=== PATIENT | male | born 1990 | race Caucasian/White ===

== ENCOUNTER 2020-04-02 18:25 | Inpatient (IN) | payer MEDICAID, OTHER ==
[~2020-04-02] VITALS: Ht 182.9 cm; Wt 54.5 kg
[~2020-04-02 18:25] MED LIST: AMOX-580 PO; CARV-49 PO; FOLI0.4T2 PO; LACT10SO32 PO; LORA-269 PO; MULT-1085 PO; PANT40TA4 PO; THIA50TA10 PO
[2020-04-02] MEDS ORDERED: pantoprazole 40 MG vial IV ONE (19:05)
[2020-04-02] MEDS ORDERED: pantoprazole 40MG/NS 100ML BAG 100 ML IV STA (19:05)
[2020-04-02] MEDS ORDERED: morphine 4 MG/ML inj SYRINge IV ONE (19:05)
[2020-04-02] MEDS ORDERED: normal saline 1000ML IV soln IVB ONE ×2 (19:05→19:45)
[2020-04-02 19:07] LABS: BASOPHILS # (AUTO) 0.1 X10'3 (0-0.2); BASOPHILS % (AUTO) 1.1 % (0-1); EOSINOPHILS % (AUTO) 0.3 % (0-6); HEMATOCRIT 30.7 % (42.0-52.0); HEMOGLOBIN 10.4 g/dl (14.0-17.9); LYMPHOCYTES # (AUTO) 1.4 X10'3 (1.1-4.8); LYMPHOCYTES % (AUTO) 18.8 % (21-51); MEAN CORPUSCULAR HEMOGLOBIN 32.4 PG (27.0-31.0); MEAN CORPUSCULAR HGB CONC 33.8 g/dL (33.0-36.5); MEAN CORPUSCULAR VOLUME 95.9 FL (78-98); MEAN PLATELET VOLUME 8.3 FL (7.4-10.4); MONOCYTES # (AUTO) 0.7 X10'3 (0-0.9); MONOCYTES % (AUTO) 8.8 % (2-12); NEUTROPHILS # (AUTO) 5.4 X10'3 (1.8-7.7); PLATELET COUNT 134 X10'3 (140-440); RED CELL DISTRIBUTION WIDTH 16.9 % (11.5-14.5); WHITE BLOOD COUNT 7.6 X10'3 (4.5-11.0)
[2020-04-02 19:21] LABS: ALANINE AMINOTRANSFERASE 40 U/L (12-78); ALBUMIN 3.1 G/DL (3.4-5.0); ALBUMIN/GLOBULIN RATIO 0.8 (1.1-1.5); ALKALINE PHOSPHATASE 333 IU/L (46-116); ANION GAP 18 (8-16); ASPARTATE AMINO TRANSFERASE 241 U/L (10-37); BILIRUBIN,TOTAL 3.5 MG/DL (0.1-1.0); BLOOD UREA NITROGEN 7 MG/DL (7-18); BUN/CREATININE RATIO 6.3 (5.4-32.0); CALCIUM 8.2 MG/DL (8.5-10.1); CHLORIDE 91 MMOL/L (99-107); CREATININE 1.12 MG/DL (0.60-1.10); GLUCOSE 153 MG/DL (70-104); POTASSIUM 3.1 MMOL/L (3.5-5.1); SODIUM 136 MMOL/L (135-145); TOTAL CARBON DIOXIDE 26.9 MMOL/L (24-32); eGFR 78 ML/MIN
[2020-04-02 19:25] LABS: LIPASE 199 U/L (73-393)
[2020-04-02 19:27] LABS: PARTIAL THROMBOPLASTIN TIME 28 SECONDS (22-32)
[2020-04-02 19:37] LABS: ETHANOL 0.418 GM/DL (0.0-0.010)
[2020-04-02 20:12] LABS: CLARITY,URINE SLIGHTLY CLOUDY (Clear); COLOR,URINE AMBER (Yellow); GLUCOSE, URINE 100 mg/dl (Neg); KETONES,URINE >=80 mg/dl (Neg); LEUKOCYTE ESTERASE ,URINE NEGATIVE (Neg); NITRITES, URINE NEGATIVE (Neg); OCCULT BLOOD,URINE SMALL (Neg); PROTEIN,URINE 30 mg/dl (Neg); UROBILINOGEN,URINE >=8.0 E.U/dL (0.2-1.0)
[2020-04-02 20:16] LABS: UA COLLECTION TYPE STRAIGHT CATH
[2020-04-02 20:24] LABS: BACTERIA,URINE FEW /HPF (Neg); RBC,URINE 0-2 /HPF (0-2); SQUAMOUS EPITHELIAL CELL,UR FEW /LPF (FEW); WBC,URINE 0-4 /HPF (0-4)
[2020-04-02 20:25] LABS: MUCUS STRANDS MODERATE /LPF (Neg)
[2020-04-02] MEDS ORDERED: PANT40TA4 PO (21:11)
[2020-04-02] MEDS ORDERED: LACT10SO PO (21:14)
[2020-04-02] MEDS ORDERED: FOLI0.4T2 PO (21:14)
[2020-04-02] MEDS ORDERED: CARV-49 PO (21:14)
[2020-04-02] MEDS ORDERED: LORA-269 PO (21:14)
[2020-04-02] MEDS ORDERED: LORA2TAB96 PO (21:14)
[2020-04-02] MEDS ORDERED: dextrose ORAL solution 15 GM/59 ML bottle PO PRN (22:05)
[2020-04-02] MEDS ORDERED: acetaminophen 325mg tablet PO PRN (22:05)
[2020-04-02] MEDS ORDERED: potassium Cl 20 mEq SR tablet PO PRN (22:05)
[2020-04-02] MEDS ORDERED: haloperidol 5mg tablet PO PRN (22:05)
[2020-04-02] MEDS ORDERED: magnesium 4gm in 100ml NS 100 ML IV PRN (22:05)
[2020-04-02] MEDS ORDERED: insulin Lispro (HumaLOG) vial - multi-dose SQ SCH (22:05)
[2020-04-02] MEDS ORDERED: magnesium 2GM in 50ml NS 50 ML IV PRN (22:05)
[2020-04-02] MEDS ORDERED: dextrose 50%-water 50ml dispensing syringe IV PRN ×2 (22:05)
[2020-04-02] MEDS ORDERED: glucagon, human recombinant 1mg kit SUBCUT PRN (22:05)
[2020-04-02] MEDS ORDERED: magnesium hydroxide 30ml (MOM) UD suspension PO PRN (22:05)
[2020-04-02] MEDS ORDERED: thiamine inj. 100 MG in normal saline 100ml IV soln 100 ML IV ONE (22:05)
[2020-04-02] MEDS ORDERED: haloperidol lactate 5mg/ml inj IM PRN (22:05)
[2020-04-02] MEDS ORDERED: MESSAGE TO PHARMACY PO ONE (22:05)
[2020-04-02] MEDS ORDERED: mag hydrox/Alum hydrox/simeth 30ml oral suspension PO PRN (22:05)
[2020-04-02] MEDS ORDERED: potassium CL 10mEq/100ml bag 100 ML IV PRN (22:05)
[2020-04-02] MEDS ORDERED: thiamine 100mg/ml 2ml inj. IV ONE (22:20)
[2020-04-02] MEDS: normal saline 1000ml 1,000 ML IV SCH (22:28)
--- NOTE | 2020-04-02 23:01 | NUR ---
Patient in room STACIE 357. I have received report from Viet MATT and had the opportunity to ask questions and assume patient care. Patient transferred into bed 357B on Surgical.
[2020-04-02 23:30] VITALS: BP 97/55
[2020-04-02] MEDS: ondansetron/PF 4mg/2ml inj IV PRN (23:40)
[2020-04-03] VITALS (8 sets, daily range): BP systolic 82–108; BP diastolic 54–67
--- NOTE | 2020-04-03 00:22 | NUR ---
PAGER ID: [phone] MESSAGE: China karlee 54. Pt Jay Rivas in 357B is requesting pain medication and there is no pain meds ordered for him.
[2020-04-03] MEDS ORDERED: diphenhydrAMINE 25 MG/10 ML UD oral solution PO ONE (00:35)
[2020-04-03] MEDS ORDERED: mag hydrox/Alum hydrox/simeth 30ml oral suspension PO ONE (00:35)
[2020-04-03] MEDS ORDERED: LIDOcaine Viscous 15ml cup MM ONE (00:38)
[2020-04-03] MEDS: pantoprazole 40MG/NS 100ML BAG 100 ML IV SCH ×5 (00:50→22:03)
[2020-04-03] MEDS: potassium CL 10mEq/100ml bag 100 ML IV PRN ×4 (01:56→05:24)
[2020-04-03] MEDS: LORazepam 2 mg/ml vial IV PRN ×4 (04:32→20:57)
[2020-04-03] MEDS: ondansetron/PF 4mg/2ml inj IV PRN ×2 (05:32→15:56)
[2020-04-03 06:21] LABS: OCCULT BLOOD STOOL NEGATIVE (Neg)
[2020-04-03 06:28] LABS: BASOPHILS # (AUTO) 0.1 X10'3 (0-0.2); EOSINOPHILS % (AUTO) 0.4 % (0-6); HEMATOCRIT 27.9 % (42.0-52.0); HEMOGLOBIN 9.4 g/dl (14.0-17.9); LYMPHOCYTES # (AUTO) 1.2 X10'3 (1.1-4.8); LYMPHOCYTES % (AUTO) 22.6 % (21-51); MEAN CORPUSCULAR HEMOGLOBIN 32.7 PG (27.0-31.0); MEAN CORPUSCULAR HGB CONC 33.8 g/dL (33.0-36.5); MEAN CORPUSCULAR VOLUME 96.6 FL (78-98); MEAN PLATELET VOLUME 8.5 FL (7.4-10.4); MONOCYTES # (AUTO) 0.6 X10'3 (0-0.9); MONOCYTES % (AUTO) 10.3 % (2-12); NEUTROPHILS # (AUTO) 3.6 X10'3 (1.8-7.7); NEUTROPHILS % (AUTO) 65.7 % (42-75); RED BLOOD COUNT 2.89 X10'6 (4.70-6.10); RED CELL DISTRIBUTION WIDTH 17.4 % (11.5-14.5); WHITE BLOOD COUNT 5.5 X10'3 (4.5-11.0)
--- NOTE | 2020-04-03 06:30 | NUR ---
Problems reprioritized. Patient report given, questions answered & plan of care reviewed with Nevin MATT.
--- NOTE | 2020-04-03 06:47 | NUR ---
Patient in room STACIE 357. I have received report from China MATT and had the opportunity to ask questions and assume patient care.
[2020-04-03 06:53] LABS: ALANINE AMINOTRANSFERASE 36 U/L (12-78); ALBUMIN 2.7 G/DL (3.4-5.0); ALBUMIN/GLOBULIN RATIO 0.8 (1.1-1.5); ALKALINE PHOSPHATASE 285 IU/L (46-116); AMYLASE 34 U/L (25-115); ANION GAP 15 (8-16); ASPARTATE AMINO TRANSFERASE 217 U/L (10-37); BILIRUBIN,TOTAL 3.3 MG/DL (0.1-1.0); BLOOD UREA NITROGEN 5 MG/DL (7-18); BUN/CREATININE RATIO 5.9 (5.4-32.0); CHLORIDE 100 MMOL/L (99-107); CREATININE 0.85 MG/DL (0.60-1.10); GLUCOSE 127 MG/DL (70-104); LIPASE 114 U/L (73-393); MAGNESIUM 1.3 MG/DL (1.5-2.4); PHOSPHORUS 1.6 MG/DL (2.3-4.5); POTASSIUM 3.8 MMOL/L (3.5-5.1); SODIUM 139 MMOL/L (135-145); TOTAL PROTEIN 6.2 G/DL (6.4-8.2); eGFR > 90 ML/MIN
[2020-04-03 07:07] LABS: PLATELET COUNT 76 X10'3 (140-440)
[2020-04-03] MEDS ORDERED: MVI, adult No.4 with vit. K 10 ML in dextrose 5% water 500ml 500 ML IV SCH ×2 (08:00)
[2020-04-03] MEDS: multivitamins, therapeutics tablet PO SCH (08:00)
[2020-04-03] MEDS ORDERED: folic acid 1mg/0.2ml inj IV SCH (08:00)
[2020-04-03] MEDS: K and/or MAG REPLACEMENT MC SCH ×2 (08:00→20:50)
[2020-04-03] MEDS: normal saline 1000ml 1,000 ML IV SCH ×3 (08:03→20:44)
[2020-04-03] MEDS: folic acid 0.4mg tablet PO SCH (08:41)
[2020-04-03] MEDS: carvedilol 6.25mg tablet PO SCH ×2 (08:41→20:00)
[2020-04-03] MEDS: lactulose 20gm/30ml cup PO SCH ×2 (08:42→20:47)
--- NOTE | 2020-04-03 11:05 | NUR ---
Pt came back from surgery, post surgical vitals on, pt continuously taking them off, he states he is refusing to wear them. Pt educted on the reasons why we do these vitals. Pt states understanding of why, but he still would like to refused it. pt took BP cuff off and finger prove off as well. paged and notified.
[2020-04-03] MEDS: thiamine 100mg tablet PO SCH (11:33)
[2020-04-03] MEDS ORDERED: LIDOcaine Viscous 15ml cup MM PRN (12:35)
[2020-04-03] MEDS ORDERED: LIDOcaine Viscous 15ml cup ONE (12:59)
[2020-04-03] MEDS ORDERED: MIDAZolam 5mg/5ml vial ONE (12:59)
[2020-04-03] MEDS ORDERED: fentaNYL/PF 50MCG/1 ML 2ML syringe ONE (12:59)
--- NOTE | 2020-04-03 13:20 | NUR ---
Malnutrition consult: Attempted visit with pt at bedside however pt sleeping and did not wake with verbal cues. Unable to visibly assess for fat or muscle loss d/t pt under covers. Pt with scaled wt hx of 57 kg taken 03/10 with bay, no documentation of how current wt was obtained. Pt admit with GIB possibly secondary to a bleeding esophageal varices, currently NPO. Pt with EtOH hx, currently receiving routine Thiamine, Folic acid, and MVI. Pt with no documented significant decrease in muscle strength or edema. Unable to fully assess for malnutrition at this time. Will f/u at another time. Addendum: 04/03/20 at [address] Amended: Links added.
--- NOTE | 2020-04-03 14:30 | NUR ---
Pt back from GI lab
[2020-04-03] MEDS: acetaminophen 325mg tablet PO PRN (15:57)
--- NOTE | 2020-04-03 18:46 | NUR ---
Problems reprioritized. Patient report given, questions answered & plan of care reviewed with toño MATT.
[2020-04-03 18:51] LABS: HEMATOCRIT 24.1 % (42.0-52.0); MEAN CORPUSCULAR HEMOGLOBIN 32.2 PG (27.0-31.0); MEAN CORPUSCULAR HGB CONC 33.3 g/dL (33.0-36.5); MEAN CORPUSCULAR VOLUME 96.8 FL (78-98); MEAN PLATELET VOLUME 8.2 FL (7.4-10.4); PLATELET COUNT 53 X10'3 (140-440); RED BLOOD COUNT 2.49 X10'6 (4.70-6.10); RED CELL DISTRIBUTION WIDTH 17.2 % (11.5-14.5)
[2020-04-03] MEDS ORDERED: thiamine inj. 100 MG in normal saline 100ml IV soln 100 ML IV SCH (21:00)
[2020-04-03] MEDS: insulin glargine (Lantus) pen - multi-dose SQ SCH (21:00)
[2020-04-04] VITALS: BP 108/71
--- NOTE | 2020-04-04 00:24 | NUR ---
reviewed and agree with SRN assessment
[2020-04-04] MEDS: ondansetron/PF 4mg/2ml inj IV PRN ×4 (00:38→22:21)
[2020-04-04] MEDS: LORazepam 2 mg/ml vial IV PRN ×4 (01:01→20:44)
[2020-04-04 02:10] LABS: HEMATOCRIT 26.9 % (42.0-52.0); HEMOGLOBIN 9.1 g/dl (14.0-17.9); MEAN CORPUSCULAR HEMOGLOBIN 32.6 PG (27.0-31.0); MEAN CORPUSCULAR HGB CONC 33.9 g/dL (33.0-36.5); MEAN CORPUSCULAR VOLUME 96.2 FL (78-98); PLATELET COUNT 57 X10'3 (140-440); RED BLOOD COUNT 2.79 X10'6 (4.70-6.10); RED CELL DISTRIBUTION WIDTH 17.3 % (11.5-14.5)
[2020-04-04 02:40] LABS: ALANINE AMINOTRANSFERASE 38 U/L (12-78); ALBUMIN 2.6 G/DL (3.4-5.0); ALKALINE PHOSPHATASE 279 IU/L (46-116); AMYLASE 29 U/L (25-115); ANION GAP 8 (8-16); ASPARTATE AMINO TRANSFERASE 252 U/L (10-37); BILIRUBIN,TOTAL 4.7 MG/DL (0.1-1.0); BLOOD UREA NITROGEN 4 MG/DL (7-18); BUN/CREATININE RATIO 3.2 (5.4-32.0); CALCIUM 7.8 MG/DL (8.5-10.1); CHLORIDE 100 MMOL/L (99-107); CREATININE 1.25 MG/DL (0.60-1.10); GLUCOSE 138 MG/DL (70-104); LIPASE 129 U/L (73-393); MAGNESIUM 2.9 MG/DL (1.5-2.4); SODIUM 136 MMOL/L (135-145); TOTAL CARBON DIOXIDE 27.6 MMOL/L (24-32); eGFR 69 ML/MIN
[2020-04-04] MEDS: potassium CL 10mEq/100ml bag 100 ML IV PRN (03:04)
[2020-04-04 03:07] LABS: ALBUMIN/GLOBULIN RATIO 0.7 (1.1-1.5); TOTAL PROTEIN 6.1 G/DL (6.4-8.2)
--- NOTE | 2020-04-04 03:10 | NUR ---
notified MD of critical phos level - MD stated to have 1 dose of IV phos - speak to pharmacy for dosing.
[2020-04-04] MEDS: pantoprazole 40MG/NS 100ML BAG 100 ML IV SCH ×5 (03:11→20:16)
[2020-04-04 03:12] LABS: PHOSPHORUS 0.5 MG/DL (2.3-4.5)
[2020-04-04] MEDS ORDERED: sodium phosphate inj. 15 MMOL in dextrose 5%-water 250 ML IV ONE (03:40)
[2020-04-04] MEDS ORDERED: sodium phosphate inj. 30 MMOL in dextrose 5%-water 250 ML IV ONE (03:50)
[2020-04-04] MEDS ORDERED: potassium phosphate inj 30 MMOL in normal saline 500ml IV soln 500 ML IV ONE (04:10)
--- NOTE | 2020-04-04 04:30 | NUR ---
Spoke to pharm and MD again re: policy of hanging Phos, with Phos protocol patient would need to be on critical care, but with single dosing, MD can order for this floor. MD agreed that patient did not need to transfer to ICU. He also stated to order phos with K+. 1 bag of K+ already administered. [facility], has 44MeQ of K+, so 3 more bags will be given for replacement
--- NOTE | 2020-04-04 06:00 | NUR ---
Problems reprioritized. Patient report given, questions answered & plan of care reviewed with Sangeeta MATT.
[2020-04-04 06:12] LABS: EOSINOPHILS # (AUTO) 0.1 X10'3 (0-0.9); EOSINOPHILS % (AUTO) 2.2 % (0-6); HEMATOCRIT 22.2 % (42.0-52.0); HEMOGLOBIN 7.7 g/dl (14.0-17.9); LYMPHOCYTES % (AUTO) 24.4 % (21-51); MEAN CORPUSCULAR HEMOGLOBIN 32.8 PG (27.0-31.0); MEAN CORPUSCULAR HGB CONC 34.4 g/dL (33.0-36.5); MEAN CORPUSCULAR VOLUME 95.3 FL (78-98); MEAN PLATELET VOLUME 9.1 FL (7.4-10.4); MONOCYTES # (AUTO) 0.5 X10'3 (0-0.9); MONOCYTES % (AUTO) 10.9 % (2-12); NEUTROPHILS # (AUTO) 2.6 X10'3 (1.8-7.7); NEUTROPHILS % (AUTO) 61.5 % (42-75); RED BLOOD COUNT 2.34 X10'6 (4.70-6.10); RED CELL DISTRIBUTION WIDTH 16.9 % (11.5-14.5); WHITE BLOOD COUNT 4.2 X10'3 (4.5-11.0)
[2020-04-04 06:19] LABS: PLATELET COUNT 50 X10'3 (140-440)
--- NOTE | 2020-04-04 06:38 | NUR ---
PAGER ID: [phone] MESSAGE: Kelechi Rivas 357B : Critical plt 50. hflomf [id number]
[2020-04-04 07:07] VITALS: BP 107/54
[2020-04-04] MEDS: carvedilol 6.25mg tablet PO SCH ×2 (07:23→20:18)
[2020-04-04] MEDS: lactulose 20gm/30ml cup PO SCH ×2 (07:23→20:17)
[2020-04-04] MEDS: thiamine 100mg tablet PO SCH (07:24)
[2020-04-04] MEDS: folic acid 0.4mg tablet PO SCH (07:24)
[2020-04-04] MEDS: multivitamins, therapeutics tablet PO SCH (07:24)
[2020-04-04] MEDS: K and/or MAG REPLACEMENT MC SCH ×2 (08:00→20:20)
[2020-04-04 08:51] LABS: HEMATOCRIT 24.8 % (42.0-52.0); HEMOGLOBIN 8.4 g/dl (14.0-17.9); MEAN CORPUSCULAR HEMOGLOBIN 32.4 PG (27.0-31.0); MEAN CORPUSCULAR HGB CONC 33.8 g/dL (33.0-36.5); MEAN CORPUSCULAR VOLUME 95.7 FL (78-98); MEAN PLATELET VOLUME 9.5 FL (7.4-10.4); PLATELET COUNT 57 X10'3 (140-440); RED CELL DISTRIBUTION WIDTH 17.3 % (11.5-14.5); WHITE BLOOD COUNT 4.6 X10'3 (4.5-11.0)
[2020-04-04] MEDS: normal saline 1000ml 1,000 ML IV SCH ×2 (09:00→17:43)
[2020-04-04 11:42] VITALS: BP 100/50
--- NOTE | 2020-04-04 11:44 | NUR ---
PAGER ID: [phone] MESSAGE: Kelechi NUNEZ 357B : 24 HOUR TELE WAS DC'D YESTERDAY. PATIENTS ELECTROLYTES ARE IN CRITICAL RANGE..WOULD YOU LIKE HIM ON TELE? JESÚS [phone]
[2020-04-04] MEDS: potassium Cl 20 mEq SR tablet PO PRN (12:06)
[2020-04-04 13:03] LABS: HEMATOCRIT 23.4 % (42.0-52.0); HEMOGLOBIN 7.9 g/dl (14.0-17.9); MEAN CORPUSCULAR HGB CONC 33.6 g/dL (33.0-36.5); MEAN CORPUSCULAR VOLUME 95.3 FL (78-98); MEAN PLATELET VOLUME 9.4 FL (7.4-10.4); RED BLOOD COUNT 2.46 X10'6 (4.70-6.10); RED CELL DISTRIBUTION WIDTH 17.1 % (11.5-14.5)
[2020-04-04 13:07] LABS: PLATELET COUNT 50 X10'3 (140-440)
--- NOTE | 2020-04-04 15:36 | NUR ---
F/u: Pt still pending accurate wt method this admit. PO 100% clear liquids no reds r/t GIB per MD. Pt has no edema/wounds, no significant weakness and likely maintains stable low wt given prior wt hx last month. At this time pt does not meet minimum malnutrition criteria. Will monitor for additional criteria this admit. Phos 0.5 and K 3.0 receiving replacements per protocol. Addendum: 04/04/20 at [address] Amended: Links added.
[2020-04-04 16:11] LABS: HEMATOCRIT 22.6 % (42.0-52.0); HEMOGLOBIN 7.6 g/dl (14.0-17.9); MEAN CORPUSCULAR HEMOGLOBIN 32.4 PG (27.0-31.0); MEAN CORPUSCULAR HGB CONC 33.7 g/dL (33.0-36.5); MEAN CORPUSCULAR VOLUME 96.1 FL (78-98); MEAN PLATELET VOLUME 8.9 FL (7.4-10.4); RED BLOOD COUNT 2.35 X10'6 (4.70-6.10); RED CELL DISTRIBUTION WIDTH 17.5 % (11.5-14.5)
[2020-04-04 16:28] LABS: POTASSIUM 3.5 MMOL/L (3.5-5.1)
[2020-04-04 16:31] LABS: PHOSPHORUS 0.9 MG/DL (2.3-4.5)
--- NOTE | 2020-04-04 16:33 | NUR ---
PAGER ID: [phone] MESSAGE: Kelechi NUNEZ 357B: CRITICAL LABS . PHOS 0.9, PLT 45. JOHAN, JESÚS [phone]
[2020-04-04 16:34] LABS: PLATELET COUNT 45 X10'3 (140-440)
--- NOTE | 2020-04-04 17:35 | NUR ---
PAGER ID: [phone] MESSAGE: Kelechi Rivas 357B : critical phos 0.9. one bag of K+phos completed. no current replacement orders.. rocio, smita [phone]
--- NOTE | 2020-04-04 18:00 | NUR ---
Student documentation: I have reviewed and agree with all interventions, assessments performed and documented by SN Mara. Student Medication Administration: For this medication-pass time frame, all medication were reviewed, dispensed, administered and documented per hospital policy by SN Mara.
--- NOTE | 2020-04-04 18:21 | NUR ---
Problems reprioritized. Patient report given, questions answered & plan of care reviewed with SHAKA Friedman.
--- NOTE | 2020-04-04 19:01 | NUR ---
Patient in room STACIE 357. I have received report from Sangeeta Gimenez and had the opportunity to ask questions and assume patient care. Addendum: 04/04/20 at 1902 by Idalia Niño RN Amended: Links added.
[2020-04-04 20:00] VITALS: BP 95/54
[2020-04-04] MEDS: acetaminophen 325mg tablet PO PRN (20:44)
[2020-04-04] MEDS: insulin glargine (Lantus) pen - multi-dose SQ SCH (21:00)
--- NOTE | 2020-04-04 22:25 | NUR ---
pt medicated for nausea with zofran. field start not drawing back or flushing.
--- NOTE | 2020-04-04 22:30 | NUR ---
Cindy INFORMED OF LOW PHOSPHORUS NOTIFIED OF LEVEL 0.9 AND GIVEN IN CRANVERRY JUICE PER REQUEST AT 2300
[2020-04-04] MEDS: Neutra Phos packet PO SCH (23:05)
[2020-04-04 23:12] VITALS: BP 91/50
--- NOTE | 2020-04-04 23:23 | NUR ---
Student documentation: I have reviewed and agree with all interventions, assessments performed and documented by Jeanne ruelas [facility] Rn student. Addendum: 04/04/20 at 0014 by Idalia Niño RN Amended: Links added.
[2020-04-05] MEDS: pantoprazole 40MG/NS 100ML BAG 100 ML IV SCH ×5 (01:13→21:38)
[2020-04-05] MEDS: normal saline 1000ml 1,000 ML IV SCH ×3 (01:14→21:47)
[2020-04-05 02:02] LABS: BASOPHILS % (AUTO) 0.8 % (0-1); EOSINOPHILS # (AUTO) 0.2 X10'3 (0-0.9); EOSINOPHILS % (AUTO) 4.5 % (0-6); HEMATOCRIT 23.7 % (42.0-52.0); HEMOGLOBIN 7.9 g/dl (14.0-17.9); LYMPHOCYTES # (AUTO) 0.9 X10'3 (1.1-4.8); LYMPHOCYTES % (AUTO) 25.3 % (21-51); MEAN CORPUSCULAR HEMOGLOBIN 32.4 PG (27.0-31.0); MEAN CORPUSCULAR HGB CONC 33.4 g/dL (33.0-36.5); MEAN CORPUSCULAR VOLUME 97.2 FL (78-98); MEAN PLATELET VOLUME 9.7 FL (7.4-10.4); MONOCYTES # (AUTO) 0.3 X10'3 (0-0.9); NEUTROPHILS # (AUTO) 2.3 X10'3 (1.8-7.7); NEUTROPHILS % (AUTO) 60.4 % (42-75); RED BLOOD COUNT 2.44 X10'6 (4.70-6.10); RED CELL DISTRIBUTION WIDTH 17.4 % (11.5-14.5); WHITE BLOOD COUNT 3.7 X10'3 (4.5-11.0)
[2020-04-05 02:15] LABS: PLATELET COUNT 47 X10'3 (140-440)
[2020-04-05 02:30] LABS: ALANINE AMINOTRANSFERASE 35 U/L (12-78); ALBUMIN 2.2 G/DL (3.4-5.0); ALKALINE PHOSPHATASE 234 IU/L (46-116); AMYLASE 20 U/L (25-115); ANION GAP 7 (8-16); ASPARTATE AMINO TRANSFERASE 203 U/L (10-37); BILIRUBIN,TOTAL 5.4 MG/DL (0.1-1.0); BLOOD UREA NITROGEN 3 MG/DL (7-18); BUN/CREATININE RATIO 3.1 (5.4-32.0); CALCIUM 7.6 MG/DL (8.5-10.1); CHLORIDE 105 MMOL/L (99-107); CREATININE 0.97 MG/DL (0.60-1.10); GLUCOSE 169 MG/DL (70-104); LIPASE < 50 U/L (73-393); MAGNESIUM 1.7 MG/DL (1.5-2.4); POTASSIUM 3.4 MMOL/L (3.5-5.1); SODIUM 137 MMOL/L (135-145); TOTAL CARBON DIOXIDE 24.7 MMOL/L (24-32); eGFR > 90 ML/MIN
[2020-04-05 02:51] LABS: ALBUMIN/GLOBULIN RATIO 0.7 (1.1-1.5); TOTAL PROTEIN 5.3 G/DL (6.4-8.2)
[2020-04-05 02:55] LABS: PHOSPHORUS 0.9 MG/DL (2.3-4.5)
--- NOTE | 2020-04-05 04:30 | NUR ---
up in [place] ambulating then per request set up and took a shower complete lien change done to the bed.
--- NOTE | 2020-04-05 06:35 | NUR ---
Problems reprioritized. Patient report given, questions answered & plan of care reviewed with Antonio Rn &Rn student.. Student documentation: I have reviewed and agree with all interventions, assessments performed and documented by [facility] Rn student.
[2020-04-05 07:00] VITALS: BP 102/64
[2020-04-05] MEDS: carvedilol 6.25mg tablet PO SCH ×2 (07:46→20:00)
[2020-04-05] MEDS: folic acid 0.4mg tablet PO SCH (07:53)
[2020-04-05] MEDS: multivitamins, therapeutics tablet PO SCH (07:53)
[2020-04-05] MEDS: thiamine 100mg tablet PO SCH (07:54)
[2020-04-05] MEDS: Neutra Phos packet PO SCH ×3 (07:54→21:38)
[2020-04-05] MEDS: lactulose 20gm/30ml cup PO SCH ×2 (07:57→20:00)
[2020-04-05] MEDS: K and/or MAG REPLACEMENT MC SCH ×2 (08:00→20:00)
[2020-04-05] MEDS: ondansetron/PF 4mg/2ml inj IV PRN ×3 (10:44→22:42)
[2020-04-05 11:00] VITALS: BP 89/50
[2020-04-05] MEDS: nicotine 14mg patch - 24hr TD SCH (11:48)
[2020-04-05 12:14] LABS: HEMATOCRIT 23.3 % (42.0-52.0); HEMOGLOBIN 7.7 g/dl (14.0-17.9); MEAN CORPUSCULAR HEMOGLOBIN 32.3 PG (27.0-31.0); MEAN CORPUSCULAR HGB CONC 33.3 g/dL (33.0-36.5); MEAN PLATELET VOLUME 9.4 FL (7.4-10.4); WHITE BLOOD COUNT 3.4 X10'3 (4.5-11.0)
[2020-04-05 12:19] LABS: PLATELET COUNT 43 X10'3 (140-440)
[2020-04-05 16:02] VITALS: BP 85/49
[2020-04-05] MEDS: LORazepam 1 MG tablet PO PRN ×2 (16:54→22:43)
--- NOTE | 2020-04-05 18:25 | NUR ---
Patient in room STACIE 357. I have received report from ECHO MATT and had the opportunity to ask questions and assume patient care. Addendum: 04/05/20 at 2126 by Idalia Niño RN Amended: Links added.
--- NOTE | 2020-04-05 18:30 | NUR ---
Patient in room STACIE 357. I have received report from Esperanza MATT and had the opportunity to ask questions and assume patient care. Addendum: 04/06/20 at 0205 by Juhi SOOD Amended: Links added.
[2020-04-05 18:33] LABS: HEMATOCRIT 26.6 % (42.0-52.0); HEMOGLOBIN 8.9 g/dl (14.0-17.9); MEAN CORPUSCULAR HEMOGLOBIN 32.1 PG (27.0-31.0); MEAN CORPUSCULAR HGB CONC 33.4 g/dL (33.0-36.5); MEAN CORPUSCULAR VOLUME 96.1 FL (78-98); MEAN PLATELET VOLUME 9.8 FL (7.4-10.4); RED BLOOD COUNT 2.77 X10'6 (4.70-6.10); RED CELL DISTRIBUTION WIDTH 17.2 % (11.5-14.5)
[2020-04-05 18:38] LABS: PLATELET COUNT 48 X10'3 (140-440)
[2020-04-05 20:00] VITALS: BP 103/65
--- NOTE | 2020-04-05 20:15 | NUR ---
Student documentation: I have reviewed and agree with all interventions, assessments performed and documented by DELILAH HILTON RN STUDENT.Student Medication Administration: For this medication-pass time frame, all medication were reviewed, dispensed, administered and documented per hospital policy by DELILAH HILTON RN STUDENT. Addendum: 04/05/20 at 6585 by Idalia Niño RN Amended: Links added.
[2020-04-05] MEDS: insulin glargine (Lantus) pen - multi-dose SQ SCH (21:00)
[2020-04-05] MEDS: potassium Cl 20 mEq SR tablet PO PRN (21:56)
[2020-04-06] VITALS: BP 97/56
--- NOTE | 2020-04-06 00:15 | NUR ---
h&h drawn to see current lab values.
[2020-04-06] MEDS: pantoprazole 40MG/NS 100ML BAG 100 ML IV SCH ×5 (01:00→20:34)
[2020-04-06 01:12] LABS: HEMATOCRIT 24.5 % (42.0-52.0); HEMOGLOBIN 8.2 g/dl (14.0-17.9); MEAN CORPUSCULAR HEMOGLOBIN 32.7 PG (27.0-31.0); MEAN CORPUSCULAR HGB CONC 33.6 g/dL (33.0-36.5); MEAN CORPUSCULAR VOLUME 97.2 FL (78-98); MEAN PLATELET VOLUME 9.6 FL (7.4-10.4); RED BLOOD COUNT 2.52 X10'6 (4.70-6.10); RED CELL DISTRIBUTION WIDTH 17.1 % (11.5-14.5); WHITE BLOOD COUNT 4.2 X10'3 (4.5-11.0)
--- NOTE | 2020-04-06 01:12 | NUR ---
PT C/O SORE THROAT PER REQUEST ORAL LIDOCAINE GIVEN TO HIM.
[2020-04-06 01:14] LABS: PLATELET COUNT 46 X10'3 (140-440)
--- NOTE | 2020-04-06 01:21 | NUR ---
platelets went from [address] Mccartney notified per protocol.
[2020-04-06] MEDS: normal saline 1000ml 1,000 ML IV SCH ×4 (01:35→23:01)
--- NOTE | 2020-04-06 01:43 | NUR ---
resting right side eyes closed no s&s of distress at this time.
--- NOTE | 2020-04-06 03:50 | NUR ---
resting eyes closed without changes without s&s of distress at this time.
--- NOTE | 2020-04-06 04:15 | NUR ---
pt requested to have ativan and zofran before breakfast.
[2020-04-06] MEDS: ondansetron/PF 4mg/2ml inj IV PRN ×3 (05:08→19:11)
[2020-04-06] MEDS: LORazepam 1 MG tablet PO PRN ×3 (05:08→19:23)
--- NOTE | 2020-04-06 05:13 | NUR ---
PT MEDICATED PER REQUEST WITH PO ATIVAN AND ZOFRAN AT THIS TIME. PT SAID THANK YOU FOR THIS.
--- NOTE | 2020-04-06 06:00 | NUR ---
Problems reprioritized. Patient report given, questions answered & plan of care reviewed with Monie ham/neuro Rn. Addendum: 04/06/20 at 0616 by Idalia Niño RN Amended: Links added.
--- NOTE | 2020-04-06 06:10 | NUR ---
Problems reprioritized. Patient report given, questions answered & plan of care reviewed with Monie MATT. Addendum: 04/06/20 at 0611 by Juhi SOOD Amended: Links added.
[2020-04-06 07:00] VITALS: BP 105/64
--- NOTE | 2020-04-06 07:03 | NUR ---
Patient in room STACIE 357B. I have received report from SHAKA Friedman and had the opportunity to ask questions and assume patient care.
[2020-04-06 07:08] LABS: BASOPHILS % (AUTO) 0.5 % (0-1); EOSINOPHILS # (AUTO) 0.2 X10'3 (0-0.9); EOSINOPHILS % (AUTO) 4.3 % (0-6); HEMATOCRIT 24.2 % (42.0-52.0); HEMOGLOBIN 8.1 g/dl (14.0-17.9); LYMPHOCYTES # (AUTO) 0.9 X10'3 (1.1-4.8); LYMPHOCYTES % (AUTO) 21.9 % (21-51); MEAN CORPUSCULAR HEMOGLOBIN 32.2 PG (27.0-31.0); MEAN CORPUSCULAR HGB CONC 33.5 g/dL (33.0-36.5); MEAN CORPUSCULAR VOLUME 96.3 FL (78-98); MONOCYTES # (AUTO) 0.5 X10'3 (0-0.9); MONOCYTES % (AUTO) 11.5 % (2-12); NEUTROPHILS # (AUTO) 2.4 X10'3 (1.8-7.7); NEUTROPHILS % (AUTO) 61.8 % (42-75); RED BLOOD COUNT 2.52 X10'6 (4.70-6.10); RED CELL DISTRIBUTION WIDTH 17.5 % (11.5-14.5); WHITE BLOOD COUNT 3.9 X10'3 (4.5-11.0)
[2020-04-06 07:15] LABS: ALANINE AMINOTRANSFERASE 31 U/L (12-78); ALBUMIN 2.2 G/DL (3.4-5.0); ALKALINE PHOSPHATASE 229 IU/L (46-116); AMYLASE 17 U/L (25-115); ANION GAP 6 (8-16); ASPARTATE AMINO TRANSFERASE 146 U/L (10-37); BILIRUBIN,TOTAL 6.2 MG/DL (0.1-1.0); BLOOD UREA NITROGEN 0 MG/DL (7-18); CALCIUM 7.7 MG/DL (8.5-10.1); CHLORIDE 109 MMOL/L (99-107); CREATININE 0.81 MG/DL (0.60-1.10); GLUCOSE 126 MG/DL (70-104); LIPASE < 50 U/L (73-393); MAGNESIUM 1.4 MG/DL (1.5-2.4); POTASSIUM 3.8 MMOL/L (3.5-5.1); SODIUM 138 MMOL/L (135-145); TOTAL CARBON DIOXIDE 23.1 MMOL/L (24-32); eGFR > 90 ML/MIN
[2020-04-06 07:16] LABS: ALBUMIN/GLOBULIN RATIO 0.7 (1.1-1.5); TOTAL PROTEIN 5.2 G/DL (6.4-8.2)
[2020-04-06 07:19] LABS: PLATELET COUNT 45 X10'3 (140-440)
--- NOTE | 2020-04-06 07:25 | NUR ---
PHONE CALL FROM LAB WITH CRITICAL VALUES: PLT 45 AND PHOS 0.8 WILL NOTIFY Page Sent PAGER ID: [phone] MESSAGE: MEME Lama-RE: TOMMY OROZCO..CRITICAL LAB VALUE-PLATELET 45 Page Sent PAGER ID: [phone] MESSAGE: MEME Lama-RE: TOMMY NUNEZ...CRITICAL VALUE- PHOS 0.8,
[2020-04-06 07:26] LABS: PHOSPHORUS 0.8 MG/DL (2.3-4.5)
[2020-04-06] MEDS: lactulose 20gm/30ml cup PO SCH ×2 (08:00→20:00)
[2020-04-06 08:09] LABS: HEPATITIS C ANTIBODY <0.1 s/co ratio (0.0-0.9)
[2020-04-06] MEDS: K and/or MAG REPLACEMENT MC SCH ×2 (08:11→20:36)
[2020-04-06] MEDS: acetaminophen 325mg tablet PO PRN ×2 (08:30→19:12)
[2020-04-06] MEDS: folic acid 0.4mg tablet PO SCH (08:31)
[2020-04-06] MEDS: carvedilol 6.25mg tablet PO SCH ×2 (08:31→20:00)
[2020-04-06] MEDS: multivitamins, therapeutics tablet PO SCH (08:32)
[2020-04-06] MEDS: Neutra Phos packet PO SCH ×3 (08:32→20:34)
[2020-04-06] MEDS: thiamine 100mg tablet PO SCH (08:33)
[2020-04-06] MEDS: nicotine 14mg patch - 24hr TD SCH (08:35)
[2020-04-06 11:00] VITALS: BP 90/50
[2020-04-06] MEDS ORDERED: potassium CL 10mEq/100ml bag 100 ML IV PRN (13:25)
[2020-04-06] MEDS ORDERED: potassium Cl 20 mEq SR tablet PO PRN ×2 (13:25)
[2020-04-06] MEDS ORDERED: magnesium 2GM in 50ml NS 50 ML IV PRN (13:25)
[2020-04-06] MEDS ORDERED: magnesium 4gm in 100ml NS 100 ML IV PRN (13:25)
[2020-04-06] MEDS ORDERED: K and/or MAG REPLACEMENT MC SCH (13:25)
[2020-04-06] MEDS: magnesium Cl slow-release 64mg tablet PO PRN (13:48)
--- NOTE | 2020-04-06 18:37 | NUR ---
Problems reprioritized. Patient report given, questions answered & plan of care reviewed with SHAKA GILL.
--- NOTE | 2020-04-06 18:45 | NUR ---
Patient in room STACIE 357. I have received report from Sera MATT and had the opportunity to ask questions and assume patient care.
--- NOTE | 2020-04-06 19:30 | NUR ---
Initial: Patient presented with upper GI bleed, EtOH abuse, and anemia per MD note, and is s/p EGD revealing portal hypertension and gastritis all per recent MD note. If continues with lower GI bleed with have colonscopy in 2 or 3 days. Has been on full liquids for two days consuming 100%. Phosphorus low at 0.8, receiving IV replacement. Still with nausea and abdominal pain. F/u: Pt still pending accurate wt method this admit. PO 100% clear liquids no reds r/t GIB per MD. Pt has no edema/wounds, no significant weakness and likely maintains stable low wt given prior wt hx last month. At this time pt does not meet minimum malnutrition criteria. Will monitor for additional criteria this admit. Phos 0.5 and K 3.0 receiving replacements per protocol; had bloody stools 04/05. Will continue to follow and monitor PO intake, GI symptoms, and diet advancement. Recommend: 1. Advance diet as medically indicated to regular 2. Obtain new weight 3. Monitor need for ONS 4. Bowel care as needed Addendum: 04/06/20 at [address] Amended: Links added.
[2020-04-06 20:00] VITALS: BP 97/60
[2020-04-06 20:22] VITALS: BP 99/58
[2020-04-06] MEDS: insulin glargine (Lantus) pen - multi-dose SQ SCH (21:00)
[2020-04-06] MEDS ORDERED: HYDROcodone/acetaminophen 5mg/325mg tablet PO ONE (23:00)
[2020-04-07] VITALS: BP 94/64
[2020-04-07] MEDS: pantoprazole 40MG/NS 100ML BAG 100 ML IV SCH ×2 (01:37→05:36)
[2020-04-07] MEDS: normal saline 1000ml 1,000 ML IV SCH ×2 (05:36→15:40)
[2020-04-07] MEDS: LORazepam 1 MG tablet PO PRN ×3 (05:36→22:29)
[2020-04-07 06:00] LABS: ALANINE AMINOTRANSFERASE 29 U/L (12-78); ALBUMIN 2.1 G/DL (3.4-5.0); ALBUMIN/GLOBULIN RATIO 0.7 (1.1-1.5); ALKALINE PHOSPHATASE 228 IU/L (46-116); AMYLASE 15 U/L (25-115); ANION GAP 8 (8-16); ASPARTATE AMINO TRANSFERASE 121 U/L (10-37); BLOOD UREA NITROGEN 0 MG/DL (7-18); CALCIUM 8.1 MG/DL (8.5-10.1); CHLORIDE 109 MMOL/L (99-107); CREATININE 0.75 MG/DL (0.60-1.10); GLUCOSE 81 MG/DL (70-104); LIPASE < 50 U/L (73-393); MAGNESIUM 1.3 MG/DL (1.5-2.4); PHOSPHORUS 2.2 MG/DL (2.3-4.5); POTASSIUM 4.3 MMOL/L (3.5-5.1); SODIUM 140 MMOL/L (135-145); TOTAL PROTEIN 5.2 G/DL (6.4-8.2); eGFR > 90 ML/MIN
[2020-04-07 06:22] LABS: BASOPHILS % (AUTO) 0.5 % (0-1); EOSINOPHILS # (AUTO) 0.1 X10'3 (0-0.9); EOSINOPHILS % (AUTO) 4.5 % (0-6); HEMATOCRIT 27.4 % (42.0-52.0); HEMOGLOBIN 9.2 g/dl (14.0-17.9); LYMPHOCYTES # (AUTO) 0.8 X10'3 (1.1-4.8); LYMPHOCYTES % (AUTO) 23.7 % (21-51); MEAN CORPUSCULAR HEMOGLOBIN 32.6 PG (27.0-31.0); MEAN CORPUSCULAR HGB CONC 33.4 g/dL (33.0-36.5); MEAN CORPUSCULAR VOLUME 97.5 FL (78-98); MEAN PLATELET VOLUME 8.8 FL (7.4-10.4); MONOCYTES # (AUTO) 0.5 X10'3 (0-0.9); MONOCYTES % (AUTO) 15.4 % (2-12); NEUTROPHILS # (AUTO) 1.8 X10'3 (1.8-7.7); NEUTROPHILS % (AUTO) 55.9 % (42-75); PLATELET COUNT 55 X10'3 (140-440); RED BLOOD COUNT 2.81 X10'6 (4.70-6.10); RED CELL DISTRIBUTION WIDTH 17.8 % (11.5-14.5); WHITE BLOOD COUNT 3.2 X10'3 (4.5-11.0)
--- NOTE | 2020-04-07 06:45 | NUR ---
Problems reprioritized. Patient report given, questions answered & plan of care reviewed with Sofi MATT.
[2020-04-07] MEDS: dextrose ORAL solution 15 GM/59 ML bottle PO PRN ×2 (07:03→07:27)
[2020-04-07] MEDS: nicotine 14mg patch - 24hr TD SCH (07:27)
[2020-04-07] MEDS: Neutra Phos packet PO SCH ×3 (07:27→22:19)
[2020-04-07] MEDS: carvedilol 6.25mg tablet PO SCH ×2 (07:28→22:19)
[2020-04-07] MEDS: thiamine 100mg tablet PO SCH (07:28)
[2020-04-07] MEDS: multivitamins, therapeutics tablet PO SCH (07:28)
[2020-04-07] MEDS: folic acid 0.4mg tablet PO SCH (07:28)
[2020-04-07] MEDS: lactulose 20gm/30ml cup PO SCH ×2 (07:29→20:00)
[2020-04-07] MEDS: ondansetron/PF 4mg/2ml inj IV PRN ×2 (07:38→18:46)
[2020-04-07 08:00] VITALS: BP 109/76
[2020-04-07] MEDS: K and/or MAG REPLACEMENT MC SCH ×2 (08:00→20:00)
[2020-04-07 09:47] LABS: SMUDGE CELLS 1+; TOTAL CELLS COUNTED 100
[2020-04-07 09:57] LABS: PLATELET ESTIMATE DECREASED
[2020-04-07 09:58] LABS: ANISOCYTOSIS 1+; POLYCHROMASIA FEW; ROULEAUX 1+; SPHEROCYTES FEW
[2020-04-07] MEDS: magnesium Cl slow-release 64mg tablet PO PRN ×2 (10:45→22:30)
[2020-04-07 11:48] VITALS: BP 99/56
[2020-04-07 20:00] VITALS: BP 106/66
[2020-04-07] MEDS: pantoprazole 40mg Tablet.DR PO SCH (22:19)
[2020-04-07] MEDS: insulin glargine (Lantus) pen - multi-dose SQ SCH (22:21)
[2020-04-07] MEDS: acetaminophen 325mg tablet PO PRN (22:33)
[2020-04-08] VITALS: BP 106/66
[2020-04-08] MEDS: normal saline 1000ml 1,000 ML IV SCH ×3 (00:45→17:44)
[2020-04-08] MEDS: acetaminophen 325mg tablet PO PRN ×2 (05:35→11:46)
--- NOTE | 2020-04-08 06:00 | NUR ---
Patient in room STACIE 357. I have received report from SHAKA De La Garza and had the opportunity to ask questions and assume patient care.
[2020-04-08 07:00] VITALS: BP 103/68
[2020-04-08 07:16] LABS: POTASSIUM 3.9 MMOL/L (3.5-5.1)
[2020-04-08] MEDS: K and/or MAG REPLACEMENT MC SCH ×2 (08:00→20:00)
[2020-04-08] MEDS: lactulose 20gm/30ml cup PO SCH ×2 (08:00→20:00)
[2020-04-08] MEDS: multivitamins, therapeutics tablet PO SCH (09:02)
[2020-04-08] MEDS: pantoprazole 40mg Tablet.DR PO SCH ×2 (09:02→20:27)
[2020-04-08] MEDS: carvedilol 6.25mg tablet PO SCH ×2 (09:02→20:00)
[2020-04-08] MEDS: Neutra Phos packet PO SCH ×3 (09:03→20:27)
[2020-04-08] MEDS: folic acid 0.4mg tablet PO SCH (09:03)
[2020-04-08] MEDS: nicotine 14mg patch - 24hr TD SCH (09:03)
[2020-04-08] MEDS: thiamine 100mg tablet PO SCH (09:03)
[2020-04-08] MEDS: ondansetron/PF 4mg/2ml inj IV PRN ×3 (09:08→21:49)
[2020-04-08] MEDS: LORazepam 2 mg/ml vial IV PRN ×2 (09:18→21:49)
[2020-04-08 10:21] LABS: ALANINE AMINOTRANSFERASE 27 U/L (12-78); ALKALINE PHOSPHATASE 212 IU/L (46-116); ASPARTATE AMINO TRANSFERASE 93 U/L (10-37); BILIRUBIN,TOTAL 7.6 MG/DL (0.1-1.0)
[2020-04-08 10:23] LABS: ALBUMIN/GLOBULIN RATIO 0.7 (1.1-1.5); BILIRUBIN,DIRECT 5.8 MG/DL (0-0.3); TOTAL PROTEIN 4.9 G/DL (6.4-8.2)
[2020-04-08 11:00] VITALS: BP 100/52
[2020-04-08 11:07] LABS: EOSINOPHILS # (AUTO) 0.1 X10'3 (0-0.9); EOSINOPHILS % (AUTO) 2.7 % (0-6); HEMATOCRIT 23.4 % (42.0-52.0); HEMOGLOBIN 7.8 g/dl (14.0-17.9); LYMPHOCYTES # (AUTO) 0.7 X10'3 (1.1-4.8); LYMPHOCYTES % (AUTO) 21.2 % (21-51); MEAN CORPUSCULAR HEMOGLOBIN 32.3 PG (27.0-31.0); MEAN CORPUSCULAR HGB CONC 33.3 g/dL (33.0-36.5); MEAN CORPUSCULAR VOLUME 96.9 FL (78-98); MONOCYTES # (AUTO) 0.8 X10'3 (0-0.9); MONOCYTES % (AUTO) 25.3 % (2-12); NEUTROPHILS # (AUTO) 1.6 X10'3 (1.8-7.7); NEUTROPHILS % (AUTO) 49.8 % (42-75); PLATELET COUNT 60 X10'3 (140-440); RED BLOOD COUNT 2.42 X10'6 (4.70-6.10); RED CELL DISTRIBUTION WIDTH 18.6 % (11.5-14.5); WHITE BLOOD COUNT 3.2 X10'3 (4.5-11.0)
[2020-04-08 11:16] LABS: ALBUMIN 1.8 G/DL (3.4-5.0); ANION GAP 7 (8-16); BLOOD UREA NITROGEN 0 MG/DL (7-18); CALCIUM 7.3 MG/DL (8.5-10.1); CHLORIDE 107 MMOL/L (99-107); CREATININE 0.79 MG/DL (0.60-1.10); GLUCOSE 125 MG/DL (70-104); POTASSIUM 3.7 MMOL/L (3.5-5.1); SODIUM 137 MMOL/L (135-145); TOTAL CARBON DIOXIDE 23.3 MMOL/L (24-32); eGFR > 90 ML/MIN
[2020-04-08 11:32] LABS: ANISOCYTOSIS 2+; LARGE PLATELETS FEW; PLATELET ESTIMATE DECREASED; TOTAL CELLS COUNTED 100
[2020-04-08 11:33] LABS: HYPOCHROMASIA 1+
--- NOTE | 2020-04-08 11:58 | NUR ---
Reassessment: Pt s/p ultrasound which showed fatty infiltration of liver per MD notes. Pt currently NPO pending MRCP. Previously on full liquid diet documented with 75-100% PO intake. As of 04/07 Phos still low at 2.2 mg/dL however receiving routine replacement. Pt receiving PRN Zofran daily d/t nausea. LBM 04/07. Noted that pt refusing Lactulose at times. No nutrition intervention implemented at this time. Will continue to follow closely. Recommend: 1. Advance diet as medically indicated to regular 2. Obtain new weight 3. Monitor need for ONS 4. Bowel care as needed Addendum: 04/08/20 at [address] Amended: Links added.
[2020-04-08 13:43] LABS: ALANINE AMINOTRANSFERASE 23 U/L (12-78); ALBUMIN 1.9 G/DL (3.4-5.0); ALKALINE PHOSPHATASE 205 IU/L (46-116); ANION GAP 6 (8-16); ASPARTATE AMINO TRANSFERASE 80 U/L (10-37); BILIRUBIN,TOTAL 7.6 MG/DL (0.1-1.0); CALCIUM 7.6 MG/DL (8.5-10.1); CHLORIDE 108 MMOL/L (99-107); CREATININE 0.72 MG/DL (0.60-1.10); GLUCOSE 109 MG/DL (70-104); POTASSIUM 3.7 MMOL/L (3.5-5.1); SODIUM 138 MMOL/L (135-145); TOTAL CARBON DIOXIDE 23.6 MMOL/L (24-32); eGFR > 90 ML/MIN
[2020-04-08 13:45] LABS: ALBUMIN/GLOBULIN RATIO 0.7 (1.1-1.5); BLOOD UREA NITROGEN 0 MG/DL (7-18); TOTAL PROTEIN 4.7 G/DL (6.4-8.2)
[2020-04-08] MEDS: LORazepam 1 MG tablet PO PRN (15:58)
[2020-04-08 18:00] VITALS: BP 103/62
--- NOTE | 2020-04-08 18:25 | NUR ---
Problems reprioritized. Patient report given, questions answered & plan of care reviewed with SHAKA Perrin. Addendum: 04/08/20 at 1826 by Lawrence Wallace RN Addendum, SHAKA Esteban
[2020-04-08] MEDS: insulin glargine (Lantus) pen - multi-dose SQ SCH (21:00)
[2020-04-09] VITALS: BP 110/71
[2020-04-09] MEDS: normal saline 1000ml 1,000 ML IV SCH ×2 (01:37→11:36)
--- NOTE | 2020-04-09 06:15 | NUR ---
RECEIVED REPORT FROM LIAM MATT
[2020-04-09 07:10] LABS: HEMATOCRIT 26.7 % (42.0-52.0); MEAN CORPUSCULAR HEMOGLOBIN 33.1 PG (27.0-31.0); MEAN CORPUSCULAR HGB CONC 33.8 g/dL (33.0-36.5); MEAN CORPUSCULAR VOLUME 97.9 FL (78-98); MEAN PLATELET VOLUME 9.4 FL (7.4-10.4); PLATELET COUNT 103 X10'3 (140-440); RED BLOOD COUNT 2.73 X10'6 (4.70-6.10); RED CELL DISTRIBUTION WIDTH 18.9 % (11.5-14.5); WHITE BLOOD COUNT 4.4 X10'3 (4.5-11.0)
[2020-04-09] MEDS: pantoprazole 40mg Tablet.DR PO SCH (07:43)
[2020-04-09] MEDS: dextrose ORAL solution 15 GM/59 ML bottle PO PRN (07:43)
[2020-04-09] MEDS: carvedilol 6.25mg tablet PO SCH (07:43)
[2020-04-09] MEDS: lactulose 20gm/30ml cup PO SCH (07:43)
[2020-04-09] MEDS: Neutra Phos packet PO SCH ×2 (07:44→12:47)
[2020-04-09] MEDS: nicotine 14mg patch - 24hr TD SCH (07:44)
[2020-04-09] MEDS: folic acid 0.4mg tablet PO SCH (07:44)
[2020-04-09] MEDS: thiamine 100mg tablet PO SCH (07:44)
[2020-04-09] MEDS: multivitamins, therapeutics tablet PO SCH (07:44)
[2020-04-09] MEDS: LORazepam 1 MG tablet PO PRN (07:45)
[2020-04-09 07:54] LABS: ANISOCYTOSIS 2+; PLATELET ESTIMATE DECREASED; TOTAL CELLS COUNTED 100
[2020-04-09 07:55] LABS: POLYCHROMASIA FEW; TARGET CELLS FEW
[2020-04-09 08:00] VITALS: BP 104/62
[2020-04-09] MEDS: K and/or MAG REPLACEMENT MC SCH (08:00)
[2020-04-09] MEDS: ondansetron/PF 4mg/2ml inj IV PRN ×2 (09:01→15:11)
[2020-04-09] MEDS: acetaminophen 325mg tablet PO PRN (09:08)
[2020-04-09 11:00] VITALS: BP 103/62
[2020-04-09] MEDS ORDERED: spironolactone 50 MG tablet PO SCH (12:10)
[2020-04-09] MEDS ORDERED: furosemide 40mg tablet PO SCH (12:10)
[2020-04-09] MEDS ORDERED: CARV-49 PO (12:21)
[2020-04-09] MEDS ORDERED: SPIR50TA5 PO (12:21)
[2020-04-09] MEDS ORDERED: PANT40TA4 PO (12:21)
[2020-04-09] MEDS ORDERED: FURO40TA4 PO (12:21)
--- NOTE | 2020-04-09 18:01 | NUR ---
PATIENTS MOM CALLED AND SAID THE PRESCRIPTIONS THAT WERE E SENT WERE NOT SENT TO THE PHARMACY, I CALLED THEM TO [facility] PER HER REQUEST.
== END 2020-04-09 16:00 | disposition home or self-care (01) | DRG 280 ==
LOC: ER 18:26 → ED HOLD 22:03 → SUR 3N 23:01
PROVIDERS: ADMIT Family Medicine; ATTEND Internal Medicine
PROC: 0DB68ZX Excision of Stomach, Via Natural or Artificial Opening Endoscopic, Diagnostic (ICD-10-PCS; principal; 2020-04-03)
DX: K70.31 Alcoholic cirrhosis of liver with ascites (principal); K70.11 Alcoholic hepatitis with ascites; K76.6 Portal hypertension; D69.59 Other secondary thrombocytopenia; E44.0 Moderate protein-calorie malnutrition; K29.71 Gastritis, unspecified, with bleeding; E83.39 Other disorders of phosphorus metabolism; K86.89 Other specified diseases of pancreas; E11.9 Type 2 diabetes mellitus without complications; Z68.1 Body mass index [BMI] 19.9 or less, adult; D50.0 Iron deficiency anemia secondary to blood loss (chronic); E87.6 Hypokalemia; F10.229 Alcohol dependence with intoxication, unspecified; F17.210 Nicotine dependence, cigarettes, uncomplicated; F12.90 Cannabis use, unspecified, uncomplicated; K31.89 Other diseases of stomach and duodenum; K44.9 Diaphragmatic hernia without obstruction or gangrene; K76.0 Fatty (change of) liver, not elsewhere classified; Z79.899 Other long term (current) drug therapy; Z83.3 Family history of diabetes mellitus; Z84.89 Family history of other specified conditions; Z71.41 Alcohol abuse counseling and surveillance of alcoholic; Z71.6 Tobacco abuse counseling
CPT/HCPCS: 36415; 43239; 76700; 80048; 80053; 80076; 80320; 81001; 82140; 82150; 82272; 82948; 83036; 83690; 83735; 84100; 84132; 85025; 85027; 85610; 85730; 86706; 86803; 86885; 86900; 86901; 87081; 96361; 96374; 96375; 99152; 99285; A4620; C9113; G0378; J1815; J2060; J2250; J2270; J2405; J3010; J3411; J3475; J3480; J7030; J7040; J7060; Q0163

== ENCOUNTER 2020-04-20 19:34 | Inpatient (IN) | payer MEDICAID ==
[~2020-04-20] VITALS: Ht 182.9 cm; Wt 55.9 kg
[~2020-04-20 19:34] MED LIST changes: -AMOX-580 PO; +FURO40TA4 PO; +LACT10SO PO; -LACT10SO32 PO; +SPIR50TA5 PO; -THIA50TA10 PO
[2020-04-20] MEDS ORDERED: ondansetron/PF 4mg/2ml inj IV ONE (19:40)
[2020-04-20] MEDS ORDERED: normal saline 1000ML IV soln IVB ONE (19:40)
[2020-04-20 20:05] LABS: MEAN PLATELET VOLUME 8.4 FL (7.4-10.4)
[2020-04-20 20:06] LABS: HEMATOCRIT 28.9 % (42.0-52.0); HEMOGLOBIN 9.7 g/dl (14.0-17.9); MEAN CORPUSCULAR HEMOGLOBIN 31.2 PG (27.0-31.0); MEAN CORPUSCULAR HGB CONC 33.6 g/dL (33.0-36.5); PLATELET COUNT 473 X10'3 (140-440); RED BLOOD COUNT 3.11 X10'6 (4.70-6.10); RED CELL DISTRIBUTION WIDTH 20.3 % (11.5-14.5)
[2020-04-20 20:17] LABS: ALANINE AMINOTRANSFERASE 18 U/L (12-78); ALBUMIN 1.9 G/DL (3.4-5.0); ALKALINE PHOSPHATASE 305 IU/L (46-116); ANION GAP 9 (8-16); ASPARTATE AMINO TRANSFERASE 149 U/L (10-37); BILIRUBIN,TOTAL 9.7 MG/DL (0.1-1.0); BLOOD UREA NITROGEN 4 MG/DL (7-18); BUN/CREATININE RATIO 5.6 (5.4-32.0); CALCIUM 7.4 MG/DL (8.5-10.1); CHLORIDE 109 MMOL/L (99-107); CREATININE 0.72 MG/DL (0.60-1.10); GLUCOSE 156 MG/DL (70-104); LIPASE < 50 U/L (73-393); SODIUM 146 MMOL/L (135-145); TOTAL CARBON DIOXIDE 27.8 MMOL/L (24-32); eGFR > 90 ML/MIN
[2020-04-20 20:20] LABS: ALBUMIN/GLOBULIN RATIO 0.5 (1.1-1.5); POTASSIUM 3.5 MMOL/L (3.5-5.1); TOTAL PROTEIN 6.1 G/DL (6.4-8.2)
[2020-04-20 20:27] LABS: PLATELET ESTIMATE INCREASED; TOTAL CELLS COUNTED 100
[2020-04-20 20:28] LABS: ANISOCYTOSIS 1+; HYPOCHROMASIA 1+; TARGET CELLS 1+
[2020-04-20 20:35] LABS: ETHANOL 0.509 GM/DL (0.0-0.010)
[2020-04-20] MEDS: morphine 4 MG/ML inj SYRINge IV PRN ×2 (21:05→23:22)
--- NOTE | 2020-04-20 21:16 | NUR ---
relieving RN for break, pt is resting quietly on bed, no apparent distress, resp even and unlabored,
[2020-04-20] MEDS ORDERED: piperacillin/tazo 3.375gm/50ml 50 ML IV ONE (21:35)
[2020-04-20] MEDS ORDERED: potassium CL 10mEq/100ml bag 100 ML IV PRN ×2 (21:55)
[2020-04-20] MEDS ORDERED: haloperidol lactate 5mg/ml inj IM PRN (21:55)
[2020-04-20] MEDS ORDERED: dextrose 50%-water 50ml dispensing syringe IV PRN ×3 (21:55→22:05)
[2020-04-20] MEDS ORDERED: magnesium Cl slow-release 64mg tablet PO PRN (21:55)
[2020-04-20] MEDS ORDERED: thiamine 100mg/ml 2ml inj. IV ONE (21:55)
[2020-04-20] MEDS ORDERED: magnesium 4gm in 100ml NS 100 ML IV PRN (21:55)
[2020-04-20] MEDS ORDERED: magnesium hydroxide 30ml (MOM) UD suspension PO PRN (21:55)
[2020-04-20] MEDS ORDERED: magnesium 2GM in 50ml NS 50 ML IV PRN (21:55)
[2020-04-20] MEDS ORDERED: haloperidol 5mg tablet PO PRN (21:55)
[2020-04-20] MEDS ORDERED: potassium Cl 20 mEq SR tablet PO PRN (21:55)
[2020-04-20] MEDS ORDERED: mag hydrox/Alum hydrox/simeth 30ml oral suspension PO PRN (21:55)
[2020-04-20] MEDS ORDERED: MESSAGE TO PHARMACY PO ONE (22:05)
[2020-04-20] MEDS ORDERED: glucagon, human recombinant 1mg kit SUBCUT PRN (22:05)
[2020-04-20] MEDS ORDERED: dextrose ORAL solution 15 GM/59 ML bottle PO PRN ×2 (22:05)
[2020-04-20] MEDS ORDERED: insulin Lispro (HumaLOG) vial - multi-dose SQ SCH (22:05)
[2020-04-20] MEDS: normal saline 1000ml 1,000 ML IV SCH (22:39)
--- NOTE | 2020-04-20 22:44 | NUR ---
Patient in room STACIE 347. I have received report from Marino champion and had the opportunity to ask questions and assume patient care.
[2020-04-20 22:55] VITALS: BP 84/47
[2020-04-20] MEDS: metroNIDAZOLE-Flagyl 500mg/NS 100 ML IV SCH (23:21)
[2020-04-20] MEDS: HYDROcodone/acetaminophen 5mg/325mg tablet PO PRN (23:22)
[2020-04-20] MEDS: LORazepam 2 mg/ml vial IV PRN (23:52)
[2020-04-21] MEDS: pantoprazole 40MG/NS 100ML BAG 100 ML IV SCH ×6 (01:04→20:58)
[2020-04-21 06:07] LABS: ALANINE AMINOTRANSFERASE 13 U/L (12-78); ALBUMIN 1.7 G/DL (3.4-5.0); ALKALINE PHOSPHATASE 277 IU/L (46-116); ANION GAP 8 (8-16); ASPARTATE AMINO TRANSFERASE 146 U/L (10-37); BILIRUBIN,TOTAL 8.7 MG/DL (0.1-1.0); BLOOD UREA NITROGEN 5 MG/DL (7-18); BUN/CREATININE RATIO 8.3 (5.4-32.0); CALCIUM 7.2 MG/DL (8.5-10.1); CHLORIDE 113 MMOL/L (99-107); GLUCOSE 98 MG/DL (70-104); MAGNESIUM 1.9 MG/DL (1.5-2.4); SODIUM 148 MMOL/L (135-145); TOTAL CARBON DIOXIDE 26.9 MMOL/L (24-32); eGFR > 90 ML/MIN
[2020-04-21 06:08] LABS: ALBUMIN/GLOBULIN RATIO 0.4 (1.1-1.5); PHOSPHORUS 2.9 MG/DL (2.3-4.5); POTASSIUM 3.3 MMOL/L (3.5-5.1); TOTAL PROTEIN 5.6 G/DL (6.4-8.2)
[2020-04-21 07:00] VITALS: BP 90/60
[2020-04-21] MEDS: ondansetron/PF 4mg/2ml inj IV PRN ×3 (07:56→21:11)
[2020-04-21] MEDS: HYDROcodone/acetaminophen 5mg/325mg tablet PO PRN ×4 (07:58→23:06)
[2020-04-21] MEDS: multivitamins, therapeutics tablet PO SCH (07:59)
[2020-04-21] MEDS: thiamine 100mg tablet PO SCH (07:59)
[2020-04-21] MEDS: folic acid 1mg tablet PO SCH (07:59)
[2020-04-21] MEDS: potassium Cl 20 mEq SR tablet PO PRN ×3 (08:00→17:31)
[2020-04-21] MEDS: K and/or MAG REPLACEMENT MC SCH ×2 (08:00→19:10)
[2020-04-21] MEDS: metroNIDAZOLE-Flagyl 500mg/NS 100 ML IV SCH ×3 (08:04→23:05)
[2020-04-21] MEDS: normal saline 1000ml 1,000 ML IV SCH ×3 (08:05→20:57)
--- NOTE | 2020-04-21 08:16 | NUR ---
Paged PICC Rn for 2nd IV patient has antibiotics and protonix gtt. Patient was stuck multiple times last night to get line in with no success.
[2020-04-21] MEDS: levoFLOXACIN-Levaquin 500mg/D5 100 ML IV SCH (09:44)
[2020-04-21 09:55] LABS: HEMOGLOBIN 10.2 g/dl (14.0-17.9)
[2020-04-21 09:58] LABS: HEMATOCRIT 30.7 % (42.0-52.0); MEAN CORPUSCULAR HEMOGLOBIN 31.5 PG (27.0-31.0); MEAN CORPUSCULAR HGB CONC 33.1 g/dL (33.0-36.5); MEAN CORPUSCULAR VOLUME 95.1 FL (78-98); MEAN PLATELET VOLUME 8.1 FL (7.4-10.4); PLATELET COUNT 391 X10'3 (140-440); RED BLOOD COUNT 3.23 X10'6 (4.70-6.10); RED CELL DISTRIBUTION WIDTH 20.9 % (11.5-14.5); WHITE BLOOD COUNT 15.1 X10'3 (4.5-11.0)
--- NOTE | 2020-04-21 10:45 | NUR ---
Nutrition consult: Pt with a low BMI, recently admitted and evaluated by RD team. Pt with wt hx 57 kg taken 03/10 with bay, current bed scaled weight is 55.9 kg, this is non-significant wt loss of 1.9% in 6 weeks. Pending PO intake since admit, currently receiving PRN Zofran for nausea. Pt with no edema, wounds, or significant decrease in muscle strength. Pt currently lacks a minimum of two criteria for malnutrition. Likely chronically with low BMI. Pt with heavy EtOH hx, CEDRIC 0.509 on admit, currently on EtOH protocol receiving routine Thiamine, Folic acid, and MVI. Pt with hx pancreatitis however lipase <50 on admit. Also with a hx T2DM, current A1c is 5.7%, DM education not warranted at this time. Will continue to follow and monitor need for nutrition intervention. Addendum: 04/21/20 at [address] Amended: Links added.
[2020-04-21 10:46] LABS: PLATELET ESTIMATE NORMAL; TOTAL CELLS COUNTED 100
[2020-04-21 10:47] LABS: HYPOCHROMASIA 1+; TOXIC GRANULATION 1+
[2020-04-21 10:48] LABS: ANISOCYTOSIS 1+; TARGET CELLS 2+
[2020-04-21] MEDS ORDERED: SPIR50TA5 PO (11:04)
[2020-04-21 11:45] VITALS: BP 106/79
[2020-04-21 12:00] VITALS: BP 99/65
--- NOTE | 2020-04-21 12:58 | NUR ---
PAGER ID: [phone] MESSAGE: Angella-Surg [phone] Re: Rob 347B have not been able to get accurate temp on patient today best I got was 93.9 orally
--- NOTE | 2020-04-21 14:00 | NUR ---
Dr Moreira is aware that we have not been able to get a temperature on patient. no new orders at this time, continue to try.
--- NOTE | 2020-04-21 16:37 | NUR ---
PAGER ID: [phone] MESSAGE: Angella-Surg [phone] Re: Rob 347B patient requesting eye drops
--- NOTE | 2020-04-21 18:23 | NUR ---
Patient in room STACIE 347. I have received report from SHAKA Perales and had the opportunity to ask questions and assume patient care.
--- NOTE | 2020-04-21 18:37 | NUR ---
Problems reprioritized. Patient report given, questions answered & plan of care reviewed with Hamida MATT.
[2020-04-21] MEDS: lactobacillus rhamnosus 10,000 MMU CELLS/CAPSULE PO SCH (19:14)
[2020-04-21 19:56] VITALS: BP 94/53
[2020-04-21] MEDS: insulin glargine (Lantus) pen - multi-dose SQ SCH (21:00)
[2020-04-21 21:15] LABS: CLARITY,URINE CLEAR (Clear); COLOR,URINE AMBER (Yellow); GLUCOSE, URINE NEGATIVE (Neg); KETONES,URINE 15 mg/dl (Neg); LEUKOCYTE ESTERASE ,URINE NEGATIVE (Neg); NITRITES, URINE NEGATIVE (Neg); OCCULT BLOOD,URINE NEGATIVE (Neg); PROTEIN,URINE NEGATIVE (Neg)
[2020-04-21 21:20] LABS: UA COLLECTION TYPE CLN CATCH MIDSTREAM
[2020-04-21 21:25] LABS: URINE AMPHETAMINE SCREEN NEGATIVE (Neg); URINE BARBITUATE SCREEN NEGATIVE (Neg); URINE BENZODIAZEPINES SCREEN NEGATIVE (Neg); URINE CANNABINOID SCREEN POSITIVE (Neg); URINE COCAINE SCREEN NEGATIVE (Neg); URINE METHADONE SCREEN NEGATIVE (Neg); URINE OPIATE SCREEN POSITIVE (Neg); URINE PHENCYCLIDINE SCREEN NEGATIVE (Neg)
[2020-04-22] VITALS: BP 99/64
[2020-04-22] MEDS: pantoprazole 40MG/NS 100ML BAG 100 ML IV SCH ×5 (01:12→23:30)
[2020-04-22] MEDS: ondansetron/PF 4mg/2ml inj IV PRN ×3 (02:54→20:33)
[2020-04-22] MEDS: HYDROcodone/acetaminophen 5mg/325mg tablet PO PRN ×4 (03:06→20:33)
[2020-04-22] MEDS: LORazepam 2 mg/ml vial IV PRN ×4 (03:06→12:54)
[2020-04-22 05:32] LABS: MEAN PLATELET VOLUME 8.1 FL (7.4-10.4); RED CELL DISTRIBUTION WIDTH 20.5 % (11.5-14.5); WHITE BLOOD COUNT 10.2 X10'3 (4.5-11.0)
[2020-04-22 05:34] LABS: HEMATOCRIT 27.7 % (42.0-52.0); HEMOGLOBIN 9.3 g/dl (14.0-17.9); MEAN CORPUSCULAR HEMOGLOBIN 31.3 PG (27.0-31.0); MEAN CORPUSCULAR HGB CONC 33.4 g/dL (33.0-36.5); MEAN CORPUSCULAR VOLUME 93.7 FL (78-98); PLATELET COUNT 253 X10'3 (140-440); RED BLOOD COUNT 2.96 X10'6 (4.70-6.10)
[2020-04-22] MEDS: normal saline 1000ml 1,000 ML IV SCH ×2 (05:40→17:25)
[2020-04-22 05:45] LABS: ALANINE AMINOTRANSFERASE 13 U/L (12-78); ALBUMIN 1.6 G/DL (3.4-5.0); ALKALINE PHOSPHATASE 265 IU/L (46-116); ANION GAP 8 (8-16); ASPARTATE AMINO TRANSFERASE 144 U/L (10-37); BILIRUBIN,TOTAL 8.7 MG/DL (0.1-1.0); BLOOD UREA NITROGEN 3 MG/DL (7-18); BUN/CREATININE RATIO 4.2 (5.4-32.0); CALCIUM 7.2 MG/DL (8.5-10.1); CHLORIDE 115 MMOL/L (99-107); CREATININE 0.72 MG/DL (0.60-1.10); GLUCOSE 83 MG/DL (70-104); MAGNESIUM 1.5 MG/DL (1.5-2.4); POTASSIUM 3.7 MMOL/L (3.5-5.1); SODIUM 149 MMOL/L (135-145); TOTAL CARBON DIOXIDE 25.7 MMOL/L (24-32); eGFR > 90 ML/MIN
[2020-04-22 05:46] LABS: PHOSPHORUS 2.5 MG/DL (2.3-4.5); TOTAL PROTEIN 5.5 G/DL (6.4-8.2)
[2020-04-22 05:47] LABS: ALBUMIN/GLOBULIN RATIO 0.4 (1.1-1.5)
--- NOTE | 2020-04-22 06:21 | NUR ---
Problems reprioritized. Patient report given, questions answered & plan of care reviewed with SHAKA Jane.
--- NOTE | 2020-04-22 07:00 | NUR ---
patient 65 BS given juice, test repeated BS 63. given glucose 15gms BS 75, will continue to monitor.
[2020-04-22 07:30] LABS: TOTAL CELLS COUNTED 100
--- NOTE | 2020-04-22 07:30 | NUR ---
Patient in room STACIE 347. I have received report from Hamida MATT and had the opportunity to ask questions and assume patient care.
[2020-04-22 07:31] LABS: ANISOCYTOSIS 3+; PLATELET ESTIMATE NORMAL
[2020-04-22 07:32] LABS: HYPOCHROMASIA 1+; TARGET CELLS 1+
[2020-04-22 07:33] LABS: TOXIC GRANULATION 1+
[2020-04-22] MEDS: thiamine 100mg tablet PO SCH (07:42)
[2020-04-22] MEDS: multivitamins, therapeutics tablet PO SCH (07:44)
[2020-04-22] MEDS: lactobacillus rhamnosus 10,000 MMU CELLS/CAPSULE PO SCH ×2 (07:44→20:32)
[2020-04-22] MEDS: folic acid 1mg tablet PO SCH (07:44)
[2020-04-22] MEDS: metroNIDAZOLE-Flagyl 500mg/NS 100 ML IV SCH (07:45)
[2020-04-22 08:00] VITALS: BP 101/68
[2020-04-22] MEDS: K and/or MAG REPLACEMENT MC SCH ×2 (08:00→20:00)
--- NOTE | 2020-04-22 08:04 | NUR ---
Ativan was administered by alvin MATT
[2020-04-22] MEDS: levoFLOXACIN-Levaquin 500mg/D5 100 ML IV SCH (09:30)
[2020-04-22] MEDS: morphine 2 MG/ML inj. syringe IV PRN (13:41)
--- NOTE | 2020-04-22 14:07 | NUR ---
patient c/o nausea and pain. zofran and norco had been administered with minimal effect. Dr leon contacted, new orders given. Laura MATT administered 1mg Morphine, will continue to monitor.
[2020-04-22] MEDS ORDERED: PANT-47 PO (14:12)
[2020-04-22] MEDS ORDERED: CARV6.253 PO (14:12)
[2020-04-22] MEDS ORDERED: MULT-1085 PO (14:12)
[2020-04-22] MEDS: metroNIDAZOLE 500mg tablet PO SCH ×2 (16:03→23:29)
--- NOTE | 2020-04-22 17:22 | NUR ---
Student documentation: I have reviewed all interventions, assessments performed and documented by Leila JACOB from [facility] . Student Medication Administration: For all medication-passes, medications were reviewed, dispensed, administered and documented per hospital policy by Leila JACOB form [facility].
[2020-04-22 18:00] VITALS: BP 102/67
--- NOTE | 2020-04-22 18:33 | NUR ---
Problems reprioritized. Patient report given, questions answered & plan of care reviewed with vanessa MATT.
[2020-04-22] MEDS: insulin glargine (Lantus) pen - multi-dose SQ SCH (21:00)
[2020-04-22] MEDS ORDERED: LORazepam 1 MG tablet PO PRN (21:55)
[2020-04-22] MEDS ORDERED: LORazepam 2 mg/ml vial IV PRN (21:55)
[2020-04-23] VITALS: BP 114/70
[2020-04-23] MEDS: ondansetron/PF 4mg/2ml inj IV PRN ×3 (02:44→16:10)
[2020-04-23] MEDS: pantoprazole 40MG/NS 100ML BAG 100 ML IV SCH ×5 (04:39→21:55)
--- NOTE | 2020-04-23 06:51 | NUR ---
Patient in room STACIE 347. I have received report from akira mendez and had the opportunity to ask questions and assume patient care.
[2020-04-23 07:00] VITALS: BP 103/62
[2020-04-23 07:00] LABS: HEMOGLOBIN 8.4 g/dl (14.0-17.9); MEAN CORPUSCULAR HEMOGLOBIN 32.1 PG (27.0-31.0); MEAN PLATELET VOLUME 8.3 FL (7.4-10.4); WHITE BLOOD COUNT 8.9 X10'3 (4.5-11.0)
[2020-04-23 07:03] LABS: HEMATOCRIT 24.4 % (42.0-52.0); MEAN CORPUSCULAR HGB CONC 34.4 g/dL (33.0-36.5); MEAN CORPUSCULAR VOLUME 93.3 FL (78-98); PLATELET COUNT 196 X10'3 (140-440); RED BLOOD COUNT 2.62 X10'6 (4.70-6.10); RED CELL DISTRIBUTION WIDTH 20.6 % (11.5-14.5)
[2020-04-23 07:19] LABS: ALANINE AMINOTRANSFERASE 13 U/L (12-78); ALBUMIN 1.6 G/DL (3.4-5.0); ALBUMIN/GLOBULIN RATIO 0.4 (1.1-1.5); ALKALINE PHOSPHATASE 262 IU/L (46-116); ANION GAP 10 (8-16); ASPARTATE AMINO TRANSFERASE 126 U/L (10-37); BILIRUBIN,TOTAL 8.8 MG/DL (0.1-1.0); BLOOD UREA NITROGEN 2 MG/DL (7-18); BUN/CREATININE RATIO 2.8 (5.4-32.0); CALCIUM 7.5 MG/DL (8.5-10.1); CHLORIDE 113 MMOL/L (99-107); CREATININE 0.71 MG/DL (0.60-1.10); GLUCOSE 84 MG/DL (70-104); MAGNESIUM 1.3 MG/DL (1.5-2.4); PHOSPHORUS 2.1 MG/DL (2.3-4.5); POTASSIUM 3.3 MMOL/L (3.5-5.1); SODIUM 147 MMOL/L (135-145); TOTAL CARBON DIOXIDE 23.9 MMOL/L (24-32); TOTAL PROTEIN 5.3 G/DL (6.4-8.2); eGFR > 90 ML/MIN
[2020-04-23] MEDS: K and/or MAG REPLACEMENT MC SCH ×2 (08:00→20:00)
[2020-04-23 08:21] LABS: ANISOCYTOSIS 3+; HYPOCHROMASIA 1+; PLATELET ESTIMATE NORMAL; TARGET CELLS 1+; TOTAL CELLS COUNTED 100
[2020-04-23] MEDS: metroNIDAZOLE 500mg tablet PO SCH ×3 (09:19→23:44)
[2020-04-23] MEDS: thiamine 100mg tablet PO SCH (09:19)
[2020-04-23] MEDS: lactobacillus rhamnosus 10,000 MMU CELLS/CAPSULE PO SCH ×2 (09:19→19:43)
[2020-04-23] MEDS: multivitamins, therapeutics tablet PO SCH (09:19)
[2020-04-23] MEDS: folic acid 1mg tablet PO SCH (09:19)
[2020-04-23] MEDS: potassium Cl 20 mEq SR tablet PO PRN ×2 (09:20→17:05)
[2020-04-23] MEDS: levoFLOXACIN 500mg tablet PO SCH (11:40)
[2020-04-23] MEDS: normal saline 1000ml 1,000 ML IV SCH ×2 (11:42→19:52)
[2020-04-23] MEDS: morphine 2 MG/ML inj. syringe IV PRN (12:09)
[2020-04-23 19:00] VITALS: BP 117/69
[2020-04-23] MEDS: HYDROcodone/acetaminophen 5mg/325mg tablet PO PRN (19:43)
[2020-04-23] MEDS: insulin glargine (Lantus) pen - multi-dose SQ SCH (21:00)
[2020-04-24] VITALS: BP 114/66
[2020-04-24] MEDS: HYDROcodone/acetaminophen 5mg/325mg tablet PO PRN ×2 (02:34→07:16)
[2020-04-24] MEDS: ondansetron/PF 4mg/2ml inj IV PRN (02:36)
[2020-04-24] MEDS: pantoprazole 40MG/NS 100ML BAG 100 ML IV SCH (03:41)
[2020-04-24 05:08] LABS: ALANINE AMINOTRANSFERASE 16 U/L (12-78); ALBUMIN 1.4 G/DL (3.4-5.0); ALKALINE PHOSPHATASE 239 IU/L (46-116); BILIRUBIN,TOTAL 8.4 MG/DL (0.1-1.0); BLOOD UREA NITROGEN 0 MG/DL (7-18); CALCIUM 7.4 MG/DL (8.5-10.1); CHLORIDE 115 MMOL/L (99-107); CREATININE 0.78 MG/DL (0.60-1.10); GLUCOSE 102 MG/DL (70-104); MAGNESIUM 2.1 MG/DL (1.5-2.4); TOTAL CARBON DIOXIDE 22.3 MMOL/L (24-32); eGFR > 90 ML/MIN
[2020-04-24 05:22] LABS: ASPARTATE AMINO TRANSFERASE 121 U/L (10-37)
[2020-04-24 05:25] LABS: ALBUMIN/GLOBULIN RATIO 0.4 (1.1-1.5); ANION GAP 4 (8-16); PHOSPHORUS 1.5 MG/DL (2.3-4.5); POTASSIUM 3.6 MMOL/L (3.5-5.1); SODIUM 141 MMOL/L (135-145)
[2020-04-24 06:26] LABS: BASOPHILS % (AUTO) 0.3 % (0-1); EOSINOPHILS # (AUTO) 0.1 X10'3 (0-0.9); HEMATOCRIT 22.6 % (42.0-52.0); HEMOGLOBIN 7.7 g/dl (14.0-17.9); LYMPHOCYTES % (AUTO) 9.6 % (21-51); MEAN CORPUSCULAR HEMOGLOBIN 31.8 PG (27.0-31.0); MEAN CORPUSCULAR HGB CONC 33.8 g/dL (33.0-36.5); MEAN PLATELET VOLUME 8.4 FL (7.4-10.4); MONOCYTES # (AUTO) 0.5 X10'3 (0-0.9); MONOCYTES % (AUTO) 4.9 % (2-12); NEUTROPHILS # (AUTO) 9.1 X10'3 (1.8-7.7); NEUTROPHILS % (AUTO) 84.2 % (42-75); PLATELET COUNT 151 X10'3 (140-440); RED BLOOD COUNT 2.41 X10'6 (4.70-6.10); RED CELL DISTRIBUTION WIDTH 21.3 % (11.5-14.5); WHITE BLOOD COUNT 10.8 X10'3 (4.5-11.0)
[2020-04-24] MEDS: normal saline 1000ml 1,000 ML IV SCH (06:30)
--- NOTE | 2020-04-24 06:44 | NUR ---
Patient in room STACIE 347. I have received report from Carlito MATT and had the opportunity to ask questions and assume patient care.
[2020-04-24] MEDS: K and/or MAG REPLACEMENT MC SCH (06:46)
[2020-04-24] MEDS: lactobacillus rhamnosus 10,000 MMU CELLS/CAPSULE PO SCH (07:09)
[2020-04-24] MEDS: folic acid 1mg tablet PO SCH (07:09)
[2020-04-24] MEDS: multivitamins, therapeutics tablet PO SCH (07:09)
[2020-04-24] MEDS: metroNIDAZOLE 500mg tablet PO SCH (07:09)
[2020-04-24] MEDS: thiamine 100mg tablet PO SCH (07:10)
[2020-04-24 07:12] LABS: ANISOCYTOSIS 3+; PLATELET ESTIMATE NORMAL; TARGET CELLS 1+
[2020-04-24 07:55] VITALS: BP 112/67
[2020-04-24] MEDS ORDERED: metoclopramide 5 mg/ml inj IV PRN (10:00)
[2020-04-24] MEDS ORDERED: ONDA4TAB6 PO (10:24)
[2020-04-24] MEDS ORDERED: HYDR-4383 PO ×2 (10:24→10:26)
[2020-04-24 11:00] VITALS: BP 114/68
--- NOTE | 2020-04-24 11:19 | NUR ---
Asked patient if the people he lives with drink at home with him, he stated "They don't drink like I do" Educated patient to stay sober for interview with [facility], he stated "[facility] has been working with him, and I said they will not take you if you are drunk.
[2020-04-24] MEDS: levoFLOXACIN 500mg tablet PO SCH (11:33)
--- NOTE | 2020-04-24 11:41 | NUR ---
Patient educated again to stay sober until for [place] interview. Given Discharge paperwork, with Bandera script and Zofran. Took Extended and 20g out, patient tolerated well, canula intact.
[2020-04-24] MEDS ORDERED: FURO40TA4 PO (12:55)
[2020-04-24] MEDS ORDERED: SPIR100T5 PO (12:55)
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
[2020-04-24] MEDS ORDERED: LORazepam 1 MG tablet PO PRN (21:55)
[2020-04-24] MEDS ORDERED: LORazepam 2 mg/ml vial IV PRN (21:55)
== END 2020-04-24 13:54 | disposition home or self-care (01) | DRG 282 ==
LOC: ER 19:35 → ED HOLD 21:52 → SUR 3N 22:25
PROVIDERS: ADMIT Family Medicine; ATTEND Internal Medicine
DX: K85.20 Alcohol induced acute pancreatitis without necrosis or infection (principal); J90 Pleural effusion, not elsewhere classified; E83.39 Other disorders of phosphorus metabolism; K70.11 Alcoholic hepatitis with ascites; E88.09 Other disorders of plasma-protein metabolism, not elsewhere classified; K72.90 Hepatic failure, unspecified without coma; R10.9 Unspecified abdominal pain; K86.0 Alcohol-induced chronic pancreatitis; K76.9 Liver disease, unspecified; E11.9 Type 2 diabetes mellitus without complications; F10.929 Alcohol use, unspecified with intoxication, unspecified; F12.90 Cannabis use, unspecified, uncomplicated; I10 Essential (primary) hypertension; K29.60 Other gastritis without bleeding; K52.9 Noninfective gastroenteritis and colitis, unspecified; Z79.899 Other long term (current) drug therapy
CPT/HCPCS: 36415; 71045; 74176; 76937; 80053; 80305; 80320; 81003; 82140; 82948; 83036; 83690; 83735; 84100; 84145; 85025; 85610; 87081; 93005; 96374; 97110; 97161; 97530; 99285; C9113; G0378; J1815; J1956; J2060; J2270; J2405; J2543; J3411; J3475; J3490; J7030

== ENCOUNTER 2020-05-03 12:58 | Emergency (ER) | payer MEDICAID ==
[~2020-05-03] VITALS: Ht 182.9 cm; Wt 46.0 kg
[~2020-05-03 12:58] MED LIST changes: -CARV-49 PO; +CARV6.253 PO; +HYDR-4383 PO; -LACT10SO PO; -LORA-269 PO; +ONDA4TAB6 PO; +PANT-47 PO; -PANT40TA4 PO; +SPIR100T5 PO; -SPIR50TA5 PO
[2020-05-03] MEDS ORDERED: metoclopramide 5 mg/ml inj IV ONE (13:35)
[2020-05-03] MEDS ORDERED: normal saline 1000ML IV soln IVB ONE (13:35)
[2020-05-03 14:12] LABS: HEMOGLOBIN 9.6 g/dl (14.0-17.9); MEAN CORPUSCULAR HEMOGLOBIN 31.1 PG (27.0-31.0); MEAN CORPUSCULAR HGB CONC 32.9 g/dL (33.0-36.5); MEAN CORPUSCULAR VOLUME 94.5 FL (78-98); PLATELET COUNT 267 X10'3 (140-440); RED BLOOD COUNT 3.07 X10'6 (4.70-6.10); RED CELL DISTRIBUTION WIDTH 23.9 % (11.5-14.5); WHITE BLOOD COUNT 22.6 X10'3 (4.5-11.0)
[2020-05-03 14:18] LABS: ALANINE AMINOTRANSFERASE 15 U/L (12-78); ALBUMIN 1.9 G/DL (3.4-5.0); ALKALINE PHOSPHATASE 260 IU/L (46-116); ANION GAP 10 (8-16); ASPARTATE AMINO TRANSFERASE 150 U/L (10-37); BILIRUBIN,TOTAL 11.8 MG/DL (0.1-1.0); BLOOD UREA NITROGEN 1 MG/DL (7-18); BUN/CREATININE RATIO 1.4 (5.4-32.0); CALCIUM 7.5 MG/DL (8.5-10.1); CHLORIDE 109 MMOL/L (99-107); CREATININE 0.72 MG/DL (0.60-1.10); GLUCOSE 112 MG/DL (70-104); LIPASE < 50 U/L (73-393); SODIUM 147 MMOL/L (135-145); TOTAL CARBON DIOXIDE 28.2 MMOL/L (24-32); TOTAL PROTEIN 6.4 G/DL (6.4-8.2); eGFR > 90 ML/MIN
[2020-05-03 14:19] LABS: ALBUMIN/GLOBULIN RATIO 0.4 (1.1-1.5); POTASSIUM 2.6 MMOL/L (3.5-5.1)
[2020-05-03] MEDS ORDERED: piperacillin/tazo 3.375gm/50ml 50 ML IV ONE (14:35)
[2020-05-03] MEDS ORDERED: potassium Cl 10 mEq/100mL bag IV ONE (14:35)
[2020-05-03 15:09] LABS: CLARITY,URINE CLEAR (Clear); GLUCOSE, URINE 100 mg/dl (Neg); KETONES,URINE 15 mg/dl (Neg); LEUKOCYTE ESTERASE ,URINE NEGATIVE (Neg); OCCULT BLOOD,URINE NEGATIVE (Neg); PROTEIN,URINE 30 mg/dl (Neg)
[2020-05-03 15:16] LABS: UA COLLECTION TYPE CLN CATCH MIDSTREAM
[2020-05-03 15:20] LABS: COLOR,URINE AMBER (Yellow)
[2020-05-03 15:22] LABS: NITRITES, URINE UNABLE TO PERFORM (Neg)
[2020-05-03 15:26] LABS: BACTERIA,URINE NONE SEEN /HPF (Neg); HYALINE CASTS 0-3 /LPF (NEGATIVE); RBC,URINE NONE SEEN /HPF (0-2); SQUAMOUS EPITHELIAL CELL,UR FEW /LPF (FEW); WBC,URINE 0-4 /HPF (0-4)
--- NOTE | 2020-05-03 15:39 | NUR ---
[facility] number
[2020-05-03] MEDS ORDERED: morphine 4 MG/ML inj SYRINge IV ONE (15:40)
[2020-05-03 15:47] LABS: ANISOCYTOSIS 3+; NUCLEATED RED BLOOD CELLS 1 /100WBC (0-0); PLATELET ESTIMATE NORMAL; TOTAL CELLS COUNTED 100
[2020-05-03 15:48] LABS: LARGE PLATELETS FEW
[2020-05-03] MEDS ORDERED: proCHLORperazine 10 MG/2 ml inj IV ONE (16:10)
[2020-05-03 17:07] VITALS: BP 108/69
== END 2020-05-03 17:10 | disposition home or self-care (01) ==
LOC: ER 12:58
DX: K70.31 Alcoholic cirrhosis of liver with ascites (principal); E87.6 Hypokalemia; R47.81 Slurred speech; F12.90 Cannabis use, unspecified, uncomplicated; E11.65 Type 2 diabetes mellitus with hyperglycemia; I10 Essential (primary) hypertension; F10.10 Alcohol abuse, uncomplicated; Y90.9 Presence of alcohol in blood, level not specified
CPT/HCPCS: 36415; 74176; 80053; 81001; 83605; 83690; 84145; 85025; 85610; 87040; 93005; 96361; 96365; 96368; 96375; 99285; J0780; J2270; J2543; J2765; J3480; J7030

== ENCOUNTER 2020-05-13 15:59 | Inpatient (IN) | payer MEDICAID ==
[~2020-05-13] VITALS: Ht 170.2 cm; Wt 55.0 kg
[2020-05-13] MEDS ORDERED: normal saline 1000ML IV soln IVB ONE (16:20)
[2020-05-13 16:43] LABS: MEAN CORPUSCULAR HEMOGLOBIN 34.1 PG (27.0-31.0); MEAN CORPUSCULAR HGB CONC 33.8 g/dL (33.0-36.5)
[2020-05-13 16:45] LABS: HEMATOCRIT 27.2 % (42.0-52.0); HEMOGLOBIN 9.2 g/dl (14.0-17.9); MEAN PLATELET VOLUME 7.9 FL (7.4-10.4); PLATELET COUNT 310 X10'3 (140-440); RED BLOOD COUNT 2.69 X10'6 (4.70-6.10); RED CELL DISTRIBUTION WIDTH 23.8 % (11.5-14.5); WHITE BLOOD COUNT 12.2 X10'3 (4.5-11.0)
[2020-05-13 17:07] LABS: ALANINE AMINOTRANSFERASE 20 U/L (12-78); ALBUMIN 1.8 G/DL (3.4-5.0); ALKALINE PHOSPHATASE 367 IU/L (46-116); ANION GAP 14 (8-16); BILIRUBIN,TOTAL 22.1 MG/DL (0.1-1.0); BLOOD UREA NITROGEN 7 MG/DL (7-18); BUN/CREATININE RATIO 7.7 (5.4-32.0); CALCIUM 8.1 MG/DL (8.5-10.1); CHLORIDE 108 MMOL/L (99-107); CREATININE 0.91 MG/DL (0.60-1.10); SODIUM 146 MMOL/L (135-145); TOTAL CARBON DIOXIDE 24.5 MMOL/L (24-32); eGFR > 90 ML/MIN
[2020-05-13 17:40] LABS: ALBUMIN/GLOBULIN RATIO 0.4 (1.1-1.5); ASPARTATE AMINO TRANSFERASE 156 U/L (10-37); GLUCOSE 146 MG/DL (70-104); TOTAL PROTEIN 6.8 G/DL (6.4-8.2)
[2020-05-13 17:42] LABS: POTASSIUM 2.4 MMOL/L (3.5-5.1)
[2020-05-13 17:45] LABS: ETHANOL < 0.010 GM/DL (0.0-0.010)
[2020-05-13] MEDS ORDERED: potassium Cl 10 mEq/100mL bag IV ONE (17:45)
[2020-05-13 18:04] LABS: ANISOCYTOSIS 3+; PLATELET ESTIMATE NORMAL; TOTAL CELLS COUNTED 100
[2020-05-13 18:05] LABS: ROULEAUX 1+; TARGET CELLS 1+
[2020-05-13] MEDS ORDERED: lactulose 20gm/30ml cup PO ONE (19:00)
[2020-05-13 19:41] LABS: URINE AMPHETAMINE SCREEN NEGATIVE (Neg); URINE BARBITUATE SCREEN NEGATIVE (Neg); URINE BENZODIAZEPINES SCREEN NEGATIVE (Neg); URINE CANNABINOID SCREEN POSITIVE (Neg); URINE COCAINE SCREEN NEGATIVE (Neg); URINE METHADONE SCREEN NEGATIVE (Neg); URINE OPIATE SCREEN NEGATIVE (Neg); URINE PHENCYCLIDINE SCREEN NEGATIVE (Neg)
[2020-05-13] MEDS ORDERED: lactulose 20gm/30ml cup RC ONE (19:45)
[2020-05-13] MEDS ORDERED: SPIR50TA5 PO (19:47)
--- NOTE | 2020-05-13 19:47 | NUR ---
completed pt med rec with external history as pt is aloc and cannot state if still taking medications or not
[2020-05-13] MEDS ORDERED: magnesium 2GM in 50ml NS 50 ML IV PRN (20:05)
[2020-05-13] MEDS ORDERED: magnesium 4gm in 100ml NS 100 ML IV PRN (20:05)
[2020-05-13] MEDS ORDERED: potassium CL 10mEq/100ml bag 100 ML IV PRN (20:05)
[2020-05-13] MEDS ORDERED: magnesium Cl slow-release 64mg tablet PO PRN (20:05)
--- NOTE | 2020-05-13 21:42 | NUR ---
Patient in room PCU 3023. I have received report from MATTHIAS ALEXIS RN and had the opportunity to ask questions and assume patient care. patient arrived 2139
[2020-05-13] MEDS: potassium CL 10mEq/100ml bag 100 ML IV PRN ×2 (21:50→23:34)
[2020-05-13 22:00] VITALS: BP 104/59
--- NOTE | 2020-05-13 23:00 | NUR ---
unable to DART pt, non-verbally responsive but opens his eyes, not answering questions
[2020-05-14] MEDS: potassium CL 10mEq/100ml bag 100 ML IV PRN ×11 (02:03→19:02)
[2020-05-14 02:30] VITALS: BP 110/67
--- NOTE | 2020-05-14 03:24 | NUR ---
patient arrived at the floor, he was awake, but not verbally responsive to questions, started the lactulose rectally, able to insert rectal tube and medication was given, after 15min patient got up and pulled his tube. patient was really confuse and trying to get up. moved to room 3027A close to nursing station,
[2020-05-14 05:21] LABS: HEMOGLOBIN 8.1 g/dl (14.0-17.9); WHITE BLOOD COUNT 7.8 X10'3 (4.5-11.0)
[2020-05-14 05:24] LABS: HEMATOCRIT 23.4 % (42.0-52.0); MEAN CORPUSCULAR HEMOGLOBIN 34.9 PG (27.0-31.0); MEAN CORPUSCULAR HGB CONC 34.6 g/dL (33.0-36.5); MEAN CORPUSCULAR VOLUME 100.9 FL (78-98); MEAN PLATELET VOLUME 8.2 FL (7.4-10.4); PLATELET COUNT 170 X10'3 (140-440); RED BLOOD COUNT 2.32 X10'6 (4.70-6.10); RED CELL DISTRIBUTION WIDTH 23.3 % (11.5-14.5)
[2020-05-14 05:45] LABS: ALBUMIN 1.6 G/DL (3.4-5.0); ANION GAP 12 (8-16); BLOOD UREA NITROGEN 6 MG/DL (7-18); CALCIUM 7.8 MG/DL (8.5-10.1); CHLORIDE 113 MMOL/L (99-107); MAGNESIUM 1.6 MG/DL (1.5-2.4); SODIUM 148 MMOL/L (135-145)
[2020-05-14 06:10] LABS: BUN/CREATININE RATIO 7.7 (5.4-32.0); CREATININE 0.78 MG/DL (0.60-1.10); GLUCOSE 109 MG/DL (70-104); eGFR > 90 ML/MIN
[2020-05-14 06:21] LABS: POTASSIUM 2.2 MMOL/L (3.5-5.1)
--- NOTE | 2020-05-14 06:40 | NUR ---
Patient in room U 3027. I have received report from MEGGAN MATT. and had the opportunity to ask questions and assume patient care. BEDSIDE REPORT COMPLETED. PT SLEEPING. Addendum: 05/14/20 at 0817 by Karuna Bianchi RN Amended: Links added.
--- NOTE | 2020-05-14 06:42 | NUR ---
Problems reprioritized. Patient report given, questions answered & plan of care reviewed with SHAKA Beckman.
[2020-05-14 06:49] LABS: TOTAL CELLS COUNTED 100
[2020-05-14 06:50] LABS: ANISOCYTOSIS 3+; PLATELET ESTIMATE NORMAL; POLYCHROMASIA 1+
[2020-05-14 06:51] LABS: HYPOCHROMASIA 1+; ROULEAUX 1+; TARGET CELLS 2+
[2020-05-14 07:15] VITALS: BP 117/67
[2020-05-14] MEDS: K and/or MAG REPLACEMENT MC SCH ×2 (08:00→20:00)
--- NOTE | 2020-05-14 08:17 | NUR ---
Problems reprioritized. Patient report given, questions answered & plan of care reviewed with THERESA MATT.. Addendum: 05/14/20 at 0818 by Karuna Bianchi RN Amended: Links added.
[2020-05-14] MEDS: lactulose 20gm/30ml cup PO SCH ×3 (09:05→21:16)
[2020-05-14 09:41] LABS: CHOLESTEROL 131 MG/DL (0-200); HDL CHOLESTEROL 22 MG/DL (35-60); LDL CHOLESTEROL 101 MG/DL (50-100); LIPASE < 50 U/L (73-393); TRIGLYCERIDES 195 MG/DL (20-135)
[2020-05-14 11:00] VITALS: BP 112/76
--- NOTE | 2020-05-14 13:04 | NUR ---
PAGER ID: [phone] MESSAGE: Samara x [phone] davide Rivas Jay in [id number], can I have Yuliana handley for him? He is vomiting. Addendum: 05/14/20 at 1305 by Flori Albright RN received call back from Dr De Jesus, received orders for yuliana
[2020-05-14] MEDS: ondansetron/PF 4mg/2ml inj IV PRN ×2 (13:15→21:18)
[2020-05-14 15:00] VITALS: BP 109/62
--- NOTE | 2020-05-14 15:12 | NUR ---
DM consult: Pt with A1c 5.7%, DM education not warranted at this time. Will continue to follow. Addendum: 05/14/20 at [address] Amended: Links added.
[2020-05-14] MEDS: proCHLORperazine 10 MG/2 ml inj IV PRN ×2 (16:49→23:57)
[2020-05-14 18:00] VITALS: BP 100/56
--- NOTE | 2020-05-14 18:27 | NUR ---
Patient in room PCU 3027. I have received report from SHAKA Pascual and had the opportunity to ask questions and assume patient care.
[2020-05-14] MEDS: NUT.TX.GLUC.INTOLER,LAC-FR,SOY (GLUCERNA) 237 ML PO SCH (19:05)
[2020-05-14 22:00] VITALS: BP 113/70
[2020-05-15 00:39] LABS: MEAN PLATELET VOLUME 8.3 FL (7.4-10.4)
[2020-05-15 00:41] LABS: HEMATOCRIT 22.7 % (42.0-52.0); HEMOGLOBIN 7.7 g/dl (14.0-17.9); MEAN CORPUSCULAR HEMOGLOBIN 34.7 PG (27.0-31.0); PLATELET COUNT 193 X10'3 (140-440); RED BLOOD COUNT 2.22 X10'6 (4.70-6.10)
[2020-05-15 00:44] LABS: ALANINE AMINOTRANSFERASE 12 U/L (12-78); ALBUMIN 1.5 G/DL (3.4-5.0); ALKALINE PHOSPHATASE 301 IU/L (46-116); ANION GAP 12 (8-16); BILIRUBIN,TOTAL 17.9 MG/DL (0.1-1.0); BLOOD UREA NITROGEN 6 MG/DL (7-18); CALCIUM 7.6 MG/DL (8.5-10.1); CHLORIDE 112 MMOL/L (99-107); MAGNESIUM 1.6 MG/DL (1.5-2.4); SODIUM 144 MMOL/L (135-145); TOTAL CARBON DIOXIDE 20.5 MMOL/L (24-32)
[2020-05-15 00:46] LABS: ALBUMIN/GLOBULIN RATIO 0.4 (1.1-1.5); ASPARTATE AMINO TRANSFERASE 114 U/L (10-37); BUN/CREATININE RATIO 6.7 (5.4-32.0); CREATININE 0.89 MG/DL (0.60-1.10); GLUCOSE 135 MG/DL (70-104); TOTAL PROTEIN 5.7 G/DL (6.4-8.2); eGFR > 90 ML/MIN
[2020-05-15 00:54] LABS: POTASSIUM 2.7 MMOL/L (3.5-5.1)
[2020-05-15] MEDS: potassium Cl 20 mEq SR tablet PO PRN ×6 (00:59→21:08)
[2020-05-15 01:00] LABS: TOTAL CELLS COUNTED 100
[2020-05-15 01:01] LABS: ANISOCYTOSIS 3+; HYPOCHROMASIA 1+; PLATELET ESTIMATE NORMAL; POLYCHROMASIA 1+; TARGET CELLS FEW
[2020-05-15 02:00] VITALS: BP 111/69
[2020-05-15] MEDS: ondansetron/PF 4mg/2ml inj IV PRN ×2 (03:35→20:56)
[2020-05-15 06:00] VITALS: BP 119/75
--- NOTE | 2020-05-15 06:41 | NUR ---
Problems reprioritized. Patient report given, questions answered & plan of care reviewed with SHAKA Zamora.
[2020-05-15] MEDS: lactulose 20gm/30ml cup PO SCH ×3 (07:12→21:00)
--- NOTE | 2020-05-15 07:49 | NUR ---
PAGER ID: [phone] MESSAGE: Good AM! Jay Rivas in [id number] FYI has no tele, NO FLUIDS, no vitamins, no seizure precautions, no ETOH protocol ordered, no Ativan, NO BILI OR AMMONIA LABS and is on bedrest orders when he ambulates. THANK YOU! Sera [phone]
[2020-05-15] MEDS ORDERED: haloperidol lactate 5mg/ml inj IM PRN (08:00)
[2020-05-15] MEDS ORDERED: thiamine 100mg/ml 2ml inj. IV ONE (08:00)
[2020-05-15] MEDS ORDERED: dextrose 50%-water 50ml dispensing syringe IV PRN (08:00)
[2020-05-15] MEDS ORDERED: LORazepam 2 mg/ml vial IV PRN (08:00)
[2020-05-15] MEDS ORDERED: haloperidol 5mg tablet PO PRN (08:00)
[2020-05-15] MEDS: thiamine 100mg tablet PO SCH (08:00)
[2020-05-15] MEDS: K and/or MAG REPLACEMENT MC SCH ×2 (08:00→21:09)
[2020-05-15] MEDS: NUT.TX.GLUC.INTOLER,LAC-FR,SOY (GLUCERNA) 237 ML PO SCH ×3 (08:20→17:43)
[2020-05-15] MEDS: Potassium Cl inj 20 MEQ in dextrose 5%-water 990 ML IV SCH ×2 (09:16→22:31)
[2020-05-15] MEDS: multivitamins, therapeutics tablet PO SCH (09:17)
[2020-05-15] MEDS: LORazepam 1 MG tablet PO PRN ×2 (09:18→21:08)
[2020-05-15] MEDS: folic acid 1mg tablet PO SCH (09:18)
[2020-05-15] MEDS: proCHLORperazine 10 MG/2 ml inj IV PRN (09:18)
--- NOTE | 2020-05-15 10:31 | NUR ---
MRSA swab collected. Charge aware.
[2020-05-15 11:00] VITALS: BP 111/74
--- NOTE | 2020-05-15 12:41 | NUR ---
Pt. moved to room 3021 in order to adhere to isolation precautions of another pt.
[2020-05-15] MEDS: mag hydrox/Alum hydrox/simeth 30ml oral suspension PO SCH ×3 (13:45→20:59)
[2020-05-15 15:00] VITALS: BP 112/68
--- NOTE | 2020-05-15 17:29 | NUR ---
PAGER ID: [phone] MESSAGE: Jay Rivas [id number]/ [id number] This pt. has been having copious amounts of liquid stools. Last amm. 122 on 05/13. Receiving lactulose TID 45mg. Want Ammonia level? Sera [phone]
[2020-05-15 18:15] VITALS: BP 111/70
--- NOTE | 2020-05-15 18:50 | NUR ---
Patient in room U 3021. I have received report from Sera Gimenez and had the opportunity to ask questions and assume patient care. Addendum: 05/15/20 at 1850 by Idalia Niño RN Amended: Links added.
--- NOTE | 2020-05-15 19:04 | NUR ---
Gave report to Idalia MATT.
--- NOTE | 2020-05-15 20:54 | NUR ---
Problems reprioritized. Patient report given, questions answered & plan of care reviewed with Corinna Barahona Rn. Addendum: 05/15/20 at 2054 by Idalia Niño RN Amended: Links added.
[2020-05-15] MEDS: pantoprazole 40mg Tablet.DR PO SCH (20:59)
[2020-05-15 22:00] VITALS: BP 114/72
[2020-05-16 02:00] VITALS: BP 121/72
[2020-05-16] MEDS: ondansetron/PF 4mg/2ml inj IV PRN ×2 (05:19→22:48)
[2020-05-16 06:00] VITALS: BP 111/63
[2020-05-16 06:11] LABS: PLATELET COUNT 161 X10'3 (140-440); WHITE BLOOD COUNT 11.1 X10'3 (4.5-11.0)
[2020-05-16 06:13] LABS: HEMOGLOBIN 7.3 g/dl (14.0-17.9); MEAN CORPUSCULAR HEMOGLOBIN 34.4 PG (27.0-31.0); MEAN CORPUSCULAR HGB CONC 33.3 g/dL (33.0-36.5); MEAN CORPUSCULAR VOLUME 103.3 FL (78-98); MEAN PLATELET VOLUME 8.4 FL (7.4-10.4); RED BLOOD COUNT 2.13 X10'6 (4.70-6.10); RED CELL DISTRIBUTION WIDTH 23.4 % (11.5-14.5)
--- NOTE | 2020-05-16 06:26 | NUR ---
Problems reprioritized. Patient report given, questions answered & plan of care reviewed with Kate MATT.
[2020-05-16 06:36] LABS: ALANINE AMINOTRANSFERASE 10 U/L (12-78); ALBUMIN 1.4 G/DL (3.4-5.0); ALBUMIN/GLOBULIN RATIO 0.3 (1.1-1.5); ALKALINE PHOSPHATASE 267 IU/L (46-116); ANION GAP 8 (8-16); ASPARTATE AMINO TRANSFERASE 86 U/L (10-37); BILIRUBIN,TOTAL 16.6 MG/DL (0.1-1.0); BLOOD UREA NITROGEN 2 MG/DL (7-18); BUN/CREATININE RATIO 2.4 (5.4-32.0); CALCIUM 7.9 MG/DL (8.5-10.1); CHLORIDE 112 MMOL/L (99-107); CREATININE 0.84 MG/DL (0.60-1.10); GLUCOSE 121 MG/DL (70-104); MAGNESIUM 1.5 MG/DL (1.5-2.4); POTASSIUM 4.2 MMOL/L (3.5-5.1); SODIUM 139 MMOL/L (135-145); TOTAL CARBON DIOXIDE 18.7 MMOL/L (24-32); TOTAL PROTEIN 5.5 G/DL (6.4-8.2); eGFR > 90 ML/MIN
[2020-05-16] MEDS: mag hydrox/Alum hydrox/simeth 30ml oral suspension PO SCH ×4 (07:00→21:58)
[2020-05-16 07:27] LABS: TOTAL CELLS COUNTED 100
[2020-05-16 07:29] LABS: ANISOCYTOSIS 3+; PLATELET ESTIMATE NORMAL; POLYCHROMASIA 1+
[2020-05-16 07:30] LABS: SCHISTOCYTES FEW; TARGET CELLS FEW
[2020-05-16] MEDS: K and/or MAG REPLACEMENT MC SCH ×2 (08:00→20:00)
[2020-05-16] MEDS: proCHLORperazine 10 MG/2 ml inj IV PRN (08:37)
[2020-05-16] MEDS: LORazepam 1 MG tablet PO PRN ×2 (08:38→22:48)
[2020-05-16] MEDS: multivitamins, therapeutics tablet PO SCH (08:38)
[2020-05-16] MEDS: thiamine 100mg tablet PO SCH (08:39)
[2020-05-16] MEDS: folic acid 1mg tablet PO SCH (08:40)
[2020-05-16] MEDS: pantoprazole 40mg Tablet.DR PO SCH ×2 (08:40→21:58)
[2020-05-16] MEDS: NUT.TX.GLUC.INTOLER,LAC-FR,SOY (GLUCERNA) 237 ML PO SCH ×3 (08:41→18:03)
[2020-05-16] MEDS: lactulose 20gm/30ml cup PO SCH ×3 (08:44→22:00)
[2020-05-16 11:29] VITALS: BP 106/68
[2020-05-16] MEDS: Potassium Cl inj 20 MEQ in dextrose 5%-water 990 ML IV SCH (14:54)
[2020-05-16 18:00] VITALS: BP 113/66
--- NOTE | 2020-05-16 18:15 | NUR ---
Patient in room PCU 3021. I have received report from Kate MATT and had the opportunity to ask questions and assume patient care.
--- NOTE | 2020-05-16 19:00 | NUR ---
Drank 100% oral supplement and 100% milk Addendum: 05/17/20 at 0157 by Alexandra Vail RN Amended: Links added.
[2020-05-16 22:00] VITALS: BP 114/65
--- NOTE | 2020-05-17 01:39 | NUR ---
Just rechecked oral temp and now 100.7 from 100.1 at 2200. New order for 1x dose 500mg tylenol po.
[2020-05-17] MEDS ORDERED: acetaminophen 325mg tablet PO PRN (01:40)
--- NOTE | 2020-05-17 01:45 | NUR ---
pharmacy no have 500mg tylenol, order changed per MD to 650mg 1 time dose.
[2020-05-17 02:30] VITALS: BP 105/65
[2020-05-17] MEDS: LORazepam 1 MG tablet PO PRN ×3 (02:37→22:15)
[2020-05-17] MEDS: Potassium Cl inj 20 MEQ in dextrose 5%-water 990 ML IV SCH ×3 (02:54→22:26)
[2020-05-17 05:40] LABS: MEAN PLATELET VOLUME 8.4 FL (7.4-10.4)
[2020-05-17 05:42] LABS: HEMATOCRIT 22.4 % (42.0-52.0); HEMOGLOBIN 7.5 g/dl (14.0-17.9); MEAN CORPUSCULAR HEMOGLOBIN 34.4 PG (27.0-31.0); MEAN CORPUSCULAR HGB CONC 33.6 g/dL (33.0-36.5); MEAN CORPUSCULAR VOLUME 102.2 FL (78-98); PLATELET COUNT 157 X10'3 (140-440); RED BLOOD COUNT 2.19 X10'6 (4.70-6.10); RED CELL DISTRIBUTION WIDTH 22.7 % (11.5-14.5); WHITE BLOOD COUNT 14.7 X10'3 (4.5-11.0)
[2020-05-17 05:53] LABS: ALANINE AMINOTRANSFERASE 10 U/L (12-78); ALBUMIN 1.4 G/DL (3.4-5.0); ALKALINE PHOSPHATASE 264 IU/L (46-116); ANION GAP 8 (8-16); BILIRUBIN,TOTAL 18.1 MG/DL (0.1-1.0); BLOOD UREA NITROGEN 2 MG/DL (7-18); BUN/CREATININE RATIO 2.2 (5.4-32.0); CHLORIDE 110 MMOL/L (99-107); MAGNESIUM 1.5 MG/DL (1.5-2.4); POTASSIUM 4.2 MMOL/L (3.5-5.1); SODIUM 138 MMOL/L (135-145); TOTAL CARBON DIOXIDE 20.4 MMOL/L (24-32); eGFR > 90 ML/MIN
[2020-05-17 05:55] LABS: ALBUMIN/GLOBULIN RATIO 0.3 (1.1-1.5); ASPARTATE AMINO TRANSFERASE 85 U/L (10-37); GLUCOSE 126 MG/DL (70-104); TOTAL PROTEIN 5.5 G/DL (6.4-8.2)
[2020-05-17 06:31] LABS: ANISOCYTOSIS 2+; PLATELET ESTIMATE NORMAL; TOTAL CELLS COUNTED 100
[2020-05-17 06:41] LABS: ELLIPTOCYTES 1+; HYPOCHROMASIA 2+; POLYCHROMASIA 1+; SPHEROCYTES 1+; TARGET CELLS 1+
[2020-05-17 06:42] LABS: LARGE PLATELETS FEW
[2020-05-17 07:00] VITALS: BP 106/65
--- NOTE | 2020-05-17 07:21 | NUR ---
Patient in room PCU 3021. I have received report from Alexandra MATT and had the opportunity to ask questions and assume patient care.
[2020-05-17] MEDS: mag hydrox/Alum hydrox/simeth 30ml oral suspension PO SCH ×4 (07:44→22:15)
[2020-05-17] MEDS: multivitamins, therapeutics tablet PO SCH (07:45)
[2020-05-17] MEDS: thiamine 100mg tablet PO SCH (07:45)
[2020-05-17] MEDS: folic acid 1mg tablet PO SCH (07:45)
[2020-05-17] MEDS: pantoprazole 40mg Tablet.DR PO SCH ×2 (07:45→19:46)
[2020-05-17 07:55] LABS: C-REACTIVE PROTEIN 3.98 MG/DL (0.0-0.5)
[2020-05-17] MEDS: lactulose 20gm/30ml cup PO SCH ×3 (08:00→21:00)
[2020-05-17] MEDS: K and/or MAG REPLACEMENT MC SCH ×2 (08:00→20:00)
[2020-05-17] MEDS ORDERED: VANCOMYCIN 750MG IV in NS 250 ML IV SCH (08:00)
[2020-05-17] MEDS: NUT.TX.GLUC.INTOLER,LAC-FR,SOY (GLUCERNA) 237 ML PO SCH ×3 (08:12→18:10)
[2020-05-17 11:00] VITALS: BP 109/62
[2020-05-17] MEDS: piperacillin/tazo 3.375gm/50ml 50 ML IV SCH ×2 (11:47→17:52)
[2020-05-17] MEDS: VANCOMYCIN 750MG IV in NS 250 ML IV SCH ×2 (11:52→17:54)
--- NOTE | 2020-05-17 13:30 | NUR ---
Spoke to Elijah MATT on infection conrtol, patient is receiving lactulose TID. Elijah wants to hold to lactulose for 24 hrs before obtaining stool sample to R/O C-Diff. Patient will remain in C-diff isolation
[2020-05-17 15:00] VITALS: BP 109/63
[2020-05-17 18:00] VITALS: BP 111/65
--- NOTE | 2020-05-17 18:00 | NUR ---
Patient in room PCU 3021. I have received report from Melinda MATT and had the opportunity to ask questions and assume patient care.
[2020-05-17] MEDS: ondansetron/PF 4mg/2ml inj IV PRN ×2 (18:37→19:39)
--- NOTE | 2020-05-17 18:49 | NUR ---
Problems reprioritized. Patient report given, questions answered & plan of care reviewed with Marychuy MATT.
[2020-05-17] MEDS: lactobacillus rhamnosus 10,000 MMU CELLS/CAPSULE PO SCH (19:47)
[2020-05-17 22:00] VITALS: BP 114/68
[2020-05-18] MEDS: piperacillin/tazo 3.375gm/50ml 50 ML IV SCH ×3 (00:38→16:13)
[2020-05-18] MEDS: VANCOMYCIN 750MG IV in NS 250 ML IV SCH ×2 (02:06→09:46)
[2020-05-18 02:28] VITALS: BP 112/63
[2020-05-18] MEDS: LORazepam 1 MG tablet PO PRN (03:59)
[2020-05-18 05:54] LABS: BASOPHILS # (AUTO) 0.1 X10'3 (0-0.2); BASOPHILS % (AUTO) 0.5 % (0-1); EOSINOPHILS % (AUTO) 0.3 % (0-6); HEMOGLOBIN 7.2 g/dl (14.0-17.9); LYMPHOCYTES # (AUTO) 1.6 X10'3 (1.1-4.8); LYMPHOCYTES % (AUTO) 13.1 % (21-51); MEAN CORPUSCULAR HEMOGLOBIN 34.6 PG (27.0-31.0); MEAN CORPUSCULAR HGB CONC 33.2 g/dL (33.0-36.5); MEAN CORPUSCULAR VOLUME 104.4 FL (78-98); MEAN PLATELET VOLUME 8.8 FL (7.4-10.4); MONOCYTES % (AUTO) 8.1 % (2-12); NEUTROPHILS # (AUTO) 9.9 X10'3 (1.8-7.7); PLATELET COUNT 124 X10'3 (140-440); RED BLOOD COUNT 2.08 X10'6 (4.70-6.10); WHITE BLOOD COUNT 12.6 X10'3 (4.5-11.0)
[2020-05-18 05:58] LABS: HEMATOCRIT 21.7 % (42.0-52.0)
[2020-05-18 06:00] VITALS: BP 109/56
[2020-05-18 06:00] LABS: ALANINE AMINOTRANSFERASE 8 U/L (12-78); ALBUMIN 1.3 G/DL (3.4-5.0); ALBUMIN/GLOBULIN RATIO 0.3 (1.1-1.5); ALKALINE PHOSPHATASE 259 IU/L (46-116); ANION GAP 11 (8-16); ASPARTATE AMINO TRANSFERASE 80 U/L (10-37); BILIRUBIN,TOTAL 17.4 MG/DL (0.1-1.0); BLOOD UREA NITROGEN 4 MG/DL (7-18); BUN/CREATININE RATIO 5.3 (5.4-32.0); CALCIUM 7.8 MG/DL (8.5-10.1); CHLORIDE 107 MMOL/L (99-107); CREATININE 0.76 MG/DL (0.60-1.10); GLUCOSE 112 MG/DL (70-104); MAGNESIUM 1.6 MG/DL (1.5-2.4); POTASSIUM 3.4 MMOL/L (3.5-5.1); SODIUM 136 MMOL/L (135-145); TOTAL CARBON DIOXIDE 18.5 MMOL/L (24-32); TOTAL PROTEIN 5.3 G/DL (6.4-8.2); eGFR > 90 ML/MIN
[2020-05-18 06:45] LABS: ANISOCYTOSIS 3+; LARGE PLATELETS FEW
--- NOTE | 2020-05-18 07:00 | NUR ---
I received a critical of H&H 7.2 & 21.7. I sent Dr. Gerardo a page at 0620 and did not receive a call back.
--- NOTE | 2020-05-18 07:02 | NUR ---
Problems reprioritized. Patient report given, questions answered & plan of care reviewed with Ifrah MATT.
[2020-05-18] MEDS: ondansetron/PF 4mg/2ml inj IV PRN ×2 (07:20→14:15)
[2020-05-18] MEDS: mag hydrox/Alum hydrox/simeth 30ml oral suspension PO SCH ×4 (07:25→20:51)
[2020-05-18] MEDS: folic acid 1mg tablet PO SCH (07:25)
[2020-05-18] MEDS: thiamine 100mg tablet PO SCH (07:25)
[2020-05-18] MEDS: lactulose 20gm/30ml cup PO SCH ×2 (07:25→20:52)
[2020-05-18] MEDS: lactobacillus rhamnosus 10,000 MMU CELLS/CAPSULE PO SCH ×2 (07:26→20:52)
[2020-05-18] MEDS: pantoprazole 40mg Tablet.DR PO SCH ×2 (07:26→20:52)
[2020-05-18] MEDS: multivitamins, therapeutics tablet PO SCH (07:26)
--- NOTE | 2020-05-18 07:49 | NUR ---
Patient educated about the importance of taking Lactulose so that he won't build up more ammonia in his blood. Patient agreed to take the Lactulose as scheduled
[2020-05-18] MEDS: NUT.TX.GLUC.INTOLER,LAC-FR,SOY (GLUCERNA) 237 ML PO SCH ×3 (08:00→17:33)
[2020-05-18] MEDS: K and/or MAG REPLACEMENT MC SCH ×2 (08:00→20:00)
[2020-05-18] MEDS ORDERED: VANCOMYCIN LEVEL IV ONE (08:30)
--- NOTE | 2020-05-18 09:09 | NUR ---
Called lab to get the Vanco level done
[2020-05-18 11:00] VITALS: BP 113/63
--- NOTE | 2020-05-18 12:50 | NUR ---
Per Dr. De Jesus, we may discontinue the stool for c.diff order and d/c the isolation precaution
--- NOTE | 2020-05-18 12:50 | NUR ---
H/H this am 7.2/21.[address] De Jesus as well as the abdominal ultrasound result.
[2020-05-18 13:36] LABS: PLATELET ESTIMATE DECREASED
--- NOTE | 2020-05-18 13:59 | NUR ---
Initial: Pt admit w/ hepatic encephalopathy, etoh cirrhosis, hx chronic etoh abuse; possibly septic w/ hyperammonemia per MD. Placed on pureed diet without BSS likely r/t ALOC. SANTOS d/w RN regarding BSS for texture modification recs if MD agreeable. Poor PO so far this admit 0-25% meals w/ 50-75% Glucerna TID added by MD though RN does report could be r/t pureed foods in addition to DX. LBM 05/17 pt refusing lactulose r/t diarrhea per EMR. Receiving thiamin, folic, MVI for etoh hx. TG 195 would benefit from heart healthy diet once PO improves this admit. Rec: 1. advance diet as medically indicated to heart healthy 2. Glucerna TIDWM per MD 3. bowel care as needed; lactulose per MD for hyperammonemia 4. thiamin, folic, MVI for etoh hx 5. wt per rx Addendum: 05/18/20 at [address] Amended: Links added.
[2020-05-18] MEDS: Potassium Cl inj 20 MEQ in dextrose 5%-water 990 ML IV SCH (14:16)
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
--- NOTE | 2020-05-18 15:03 | NUR ---
Report given to Shannon MATT at [facility]
--- NOTE | 2020-05-18 15:03 | NUR ---
Patient in room PCU 3021. I have received report from SHAKA Rg and had the opportunity to ask questions and assume patient care. Awaiting patient arrival to unit.
--- NOTE | 2020-05-18 15:40 | NUR ---
Patient arrived to floor. VSS. c/o 06/28 pain in abdomen.
[2020-05-18 15:54] VITALS: BP 111/61
--- NOTE | 2020-05-18 16:04 | NUR ---
PAGER ID: [phone] MESSAGE: [id number]: Kelechi Rivas : patient just transferred from tele. he is requesting pain medication for 8/10 abdominal pain. he has nothing ordered. Thanks! [phone] [phone]
[2020-05-18] MEDS ORDERED: potassium CL 10mEq/100ml bag 100 ML IV PRN (17:30)
[2020-05-18] MEDS ORDERED: potassium Cl 20 mEq SR tablet PO PRN (17:30)
[2020-05-18] MEDS ORDERED: magnesium 2GM in 50ml NS 50 ML IV PRN (17:30)
[2020-05-18] MEDS ORDERED: magnesium Cl slow-release 64mg tablet PO PRN (17:30)
[2020-05-18] MEDS ORDERED: magnesium 4gm in 100ml NS 100 ML IV PRN (17:30)
[2020-05-18] MEDS: potassium Cl 20 mEq SR tablet PO PRN ×2 (17:40→22:12)
[2020-05-18] MEDS: HYDROmorphone inj. 0.5 MG/0.5 ML DISP.SYRIN IV PRN (17:40)
--- NOTE | 2020-05-18 18:30 | NUR ---
Patient in room [facility]. I have received report from Sangeeta MATT and had the opportunity to ask questions and assume patient care.
--- NOTE | 2020-05-18 18:32 | NUR ---
Problems reprioritized. Patient report given, questions answered & plan of care reviewed with SHAKA Morris.
[2020-05-18 19:58] VITALS: BP 105/62
[2020-05-18] MEDS ORDERED: K and/or MAG REPLACEMENT MC SCH (20:00)
[2020-05-18] MEDS: vancomycin/NS 1 GM ADD-VANTAGE 250 ML X 1 DOSE IV SCH (20:45)
[2020-05-19] VITALS: BP 106/65
[2020-05-19] MEDS: piperacillin/tazo 3.375gm/50ml 50 ML IV SCH ×3 (00:27→16:08)
[2020-05-19] MEDS: HYDROmorphone inj. 0.5 MG/0.5 ML DISP.SYRIN IV PRN ×3 (00:36→20:50)
[2020-05-19] MEDS: vancomycin/NS 1 GM ADD-VANTAGE 250 ML X 1 DOSE IV SCH ×3 (00:49→17:14)
[2020-05-19] MEDS: potassium Cl 20 mEq SR tablet PO PRN (03:16)
[2020-05-19] MEDS: Potassium Cl inj 20 MEQ in dextrose 5%-water 990 ML IV SCH ×2 (03:38→22:00)
--- NOTE | 2020-05-19 06:30 | NUR ---
Problems reprioritized. Patient report given, questions answered & plan of care reviewed with Sangeeta MATT.
[2020-05-19] MEDS: lactobacillus rhamnosus 10,000 MMU CELLS/CAPSULE PO SCH ×2 (07:30→20:50)
[2020-05-19] MEDS: thiamine 100mg tablet PO SCH (07:30)
[2020-05-19] MEDS: mag hydrox/Alum hydrox/simeth 30ml oral suspension PO SCH ×4 (07:30→21:58)
[2020-05-19] MEDS: multivitamins, therapeutics tablet PO SCH (07:30)
[2020-05-19] MEDS: folic acid 1mg tablet PO SCH (07:31)
[2020-05-19] MEDS: pantoprazole 40mg Tablet.DR PO SCH ×2 (07:31→20:50)
[2020-05-19 07:39] LABS: ALANINE AMINOTRANSFERASE 11 U/L (12-78); ALBUMIN 1.4 G/DL (3.4-5.0); ALKALINE PHOSPHATASE 272 IU/L (46-116); ANION GAP 10 (8-16); BILIRUBIN,TOTAL 18.5 MG/DL (0.1-1.0); BLOOD UREA NITROGEN 5 MG/DL (7-18); CALCIUM 7.9 MG/DL (8.5-10.1); CHLORIDE 107 MMOL/L (99-107); MAGNESIUM 1.6 MG/DL (1.5-2.4); POTASSIUM 3.6 MMOL/L (3.5-5.1); SODIUM 135 MMOL/L (135-145); TOTAL CARBON DIOXIDE 18.5 MMOL/L (24-32)
[2020-05-19 07:40] LABS: ALBUMIN/GLOBULIN RATIO 0.3 (1.1-1.5); ASPARTATE AMINO TRANSFERASE 83 U/L (10-37); BUN/CREATININE RATIO 5.6 (5.4-32.0); CREATININE 0.89 MG/DL (0.60-1.10); GLUCOSE 127 MG/DL (70-104); TOTAL PROTEIN 5.6 G/DL (6.4-8.2); eGFR > 90 ML/MIN
[2020-05-19] MEDS: ondansetron/PF 4mg/2ml inj IV PRN ×2 (07:41→20:50)
[2020-05-19] MEDS: K and/or MAG REPLACEMENT MC SCH ×2 (07:45→20:00)
[2020-05-19] MEDS: lactulose 20gm/30ml cup PO SCH ×2 (07:45→20:00)
[2020-05-19 07:50] VITALS: BP 103/61
[2020-05-19] MEDS: NUT.TX.GLUC.INTOLER,LAC-FR,SOY (GLUCERNA) 237 ML PO SCH ×3 (08:00→17:51)
[2020-05-19 08:27] LABS: HEMOGLOBIN 7.9 g/dl (14.0-17.9); PLATELET COUNT 135 X10'3 (140-440)
[2020-05-19 08:29] LABS: HEMATOCRIT 23.7 % (42.0-52.0); MEAN CORPUSCULAR HEMOGLOBIN 34.8 PG (27.0-31.0); MEAN CORPUSCULAR HGB CONC 33.1 g/dL (33.0-36.5); MEAN CORPUSCULAR VOLUME 105.1 FL (78-98); MEAN PLATELET VOLUME 8.8 FL (7.4-10.4); RED BLOOD COUNT 2.26 X10'6 (4.70-6.10); RED CELL DISTRIBUTION WIDTH 23.4 % (11.5-14.5); WHITE BLOOD COUNT 12.5 X10'3 (4.5-11.0)
[2020-05-19 08:49] LABS: ANISOCYTOSIS 3+; PLATELET ESTIMATE DECREASED; TOTAL CELLS COUNTED 100
[2020-05-19 08:51] LABS: BURR CELLS FEW; POLYCHROMASIA FEW; SCHISTOCYTES FEW; TOXIC GRANULATION 1+
[2020-05-19 09:40] LABS: ALANINE AMINOTRANSFERASE 10 U/L (12-78); ALBUMIN 1.4 G/DL (3.4-5.0); ALKALINE PHOSPHATASE 260 IU/L (46-116); ANION GAP 10 (8-16); BILIRUBIN,TOTAL 18.1 MG/DL (0.1-1.0); BLOOD UREA NITROGEN 5 MG/DL (7-18); BUN/CREATININE RATIO 5.6 (5.4-32.0); CALCIUM 7.6 MG/DL (8.5-10.1); CHLORIDE 107 MMOL/L (99-107); CREATININE 0.89 MG/DL (0.60-1.10); SODIUM 136 MMOL/L (135-145); TOTAL CARBON DIOXIDE 18.8 MMOL/L (24-32); eGFR > 90 ML/MIN
[2020-05-19 09:43] LABS: ALBUMIN/GLOBULIN RATIO 0.3 (1.1-1.5); ASPARTATE AMINO TRANSFERASE 85 U/L (10-37); GLUCOSE 119 MG/DL (70-104); POTASSIUM 3.8 MMOL/L (3.5-5.1); TOTAL PROTEIN 5.5 G/DL (6.4-8.2)
--- NOTE | 2020-05-19 10:18 | NUR ---
Page sent to PICC RN = Kelechi Braga : patient is a hard stick has multiple non compatible abx. could you take a look whenever you get a chance? thanks!
[2020-05-19 11:19] VITALS: BP 155/74
[2020-05-19] MEDS ORDERED: VANCOMYCIN LEVEL IV ONE (16:30)
--- NOTE | 2020-05-19 17:35 | NUR ---
PAGER ID: [phone] MESSAGE: Kelechi Rivas 360A : NEW....critical value....mahin holt .7. thanks! [phone] [phone]
--- NOTE | 2020-05-19 17:40 | NUR ---
[place] troph 20.7. notified. Pharmacist was notified who said that it was a perfect range and to continue the IV infusion.
--- NOTE | 2020-05-19 18:27 | NUR ---
Problems reprioritized. Patient report given, questions answered & plan of care reviewed with SHAKA White.
[2020-05-19 20:00] VITALS: BP 117/73
--- NOTE | 2020-05-19 21:00 | NUR ---
Patient refused tonight's Lactulose. States he is having too many episode of loose diarrhea.
[2020-05-20] VITALS: BP 107/61
[2020-05-20] MEDS: vancomycin/NS 1 GM ADD-VANTAGE 250 ML X 1 DOSE IV SCH ×3 (00:42→16:43)
[2020-05-20] MEDS: piperacillin/tazo 3.375gm/50ml 50 ML IV SCH ×4 (00:42→23:44)
[2020-05-20] MEDS: HYDROmorphone inj. 0.5 MG/0.5 ML DISP.SYRIN IV PRN ×4 (05:26→23:44)
[2020-05-20] MEDS: ondansetron/PF 4mg/2ml inj IV PRN ×4 (05:26→23:44)
[2020-05-20 06:26] LABS: ALANINE AMINOTRANSFERASE 11 U/L (12-78); ALBUMIN 1.4 G/DL (3.4-5.0); ALKALINE PHOSPHATASE 249 IU/L (46-116); ANION GAP 9 (8-16); BLOOD UREA NITROGEN 5 MG/DL (7-18); CALCIUM 7.6 MG/DL (8.5-10.1); CHLORIDE 109 MMOL/L (99-107); EOSINOPHILS # (AUTO) 0.1 X10'3 (0-0.9); MAGNESIUM 1.9 MG/DL (1.5-2.4); MEAN CORPUSCULAR HGB CONC 33.7 g/dL (33.0-36.5); POTASSIUM 3.5 MMOL/L (3.5-5.1); RED BLOOD COUNT 2.05 X10'6 (4.70-6.10); RED CELL DISTRIBUTION WIDTH 23.6 % (11.5-14.5); SODIUM 137 MMOL/L (135-145); TOTAL CARBON DIOXIDE 18.9 MMOL/L (24-32)
[2020-05-20 06:28] LABS: BASOPHILS # (AUTO) 0.1 X10'3 (0-0.2); BASOPHILS % (AUTO) 0.8 % (0-1); EOSINOPHILS % (AUTO) 0.6 % (0-6); HEMOGLOBIN 7.2 g/dl (14.0-17.9); LYMPHOCYTES # (AUTO) 0.5 X10'3 (1.1-4.8); LYMPHOCYTES % (AUTO) 5.3 % (21-51); MEAN CORPUSCULAR HEMOGLOBIN 35.3 PG (27.0-31.0); MEAN CORPUSCULAR VOLUME 104.8 FL (78-98); MEAN PLATELET VOLUME 9.3 FL (7.4-10.4); MONOCYTES # (AUTO) 1.6 X10'3 (0-0.9); MONOCYTES % (AUTO) 17.9 % (2-12); NEUTROPHILS # (AUTO) 6.8 X10'3 (1.8-7.7); NEUTROPHILS % (AUTO) 75.4 % (42-75); PLATELET COUNT 126 X10'3 (140-440); WHITE BLOOD COUNT 8.9 X10'3 (4.5-11.0)
[2020-05-20 06:30] LABS: ALBUMIN/GLOBULIN RATIO 0.4 (1.1-1.5); ASPARTATE AMINO TRANSFERASE 79 U/L (10-37); BUN/CREATININE RATIO 5.1 (5.4-32.0); CREATININE 0.98 MG/DL (0.60-1.10); GLUCOSE 105 MG/DL (70-104); TOTAL PROTEIN 5.4 G/DL (6.4-8.2); eGFR > 90 ML/MIN
[2020-05-20 06:31] LABS: HEMATOCRIT 21.5 % (42.0-52.0)
[2020-05-20 07:00] VITALS: BP 97/56
[2020-05-20] MEDS: folic acid 1mg tablet PO SCH (07:25)
[2020-05-20] MEDS: mag hydrox/Alum hydrox/simeth 30ml oral suspension PO SCH ×4 (07:25→22:06)
[2020-05-20] MEDS: lactobacillus rhamnosus 10,000 MMU CELLS/CAPSULE PO SCH ×2 (07:26→22:06)
[2020-05-20] MEDS: pantoprazole 40mg Tablet.DR PO SCH ×2 (07:26→22:06)
[2020-05-20] MEDS: multivitamins, therapeutics tablet PO SCH (07:26)
[2020-05-20] MEDS: thiamine 100mg tablet PO SCH (07:26)
[2020-05-20] MEDS: lactulose 20gm/30ml cup PO SCH ×2 (07:29→22:06)
[2020-05-20] MEDS: K and/or MAG REPLACEMENT MC SCH ×2 (08:00→20:00)
[2020-05-20] MEDS: NUT.TX.GLUC.INTOLER,LAC-FR,SOY (GLUCERNA) 237 ML PO SCH ×3 (08:39→18:03)
[2020-05-20] MEDS: proCHLORperazine 10 MG/2 ml inj IV PRN ×2 (09:11→15:07)
[2020-05-20 09:53] LABS: TOTAL CELLS COUNTED 100
[2020-05-20 09:54] LABS: ANISOCYTOSIS 3+; PLATELET ESTIMATE DECREASED; POLYCHROMASIA 1+
[2020-05-20 09:55] LABS: ELLIPTOCYTES 1+; SPHEROCYTES FEW
[2020-05-20 09:56] LABS: BURR CELLS FEW; SCHISTOCYTES FEW; TEAR DROP CELLS FEW
[2020-05-20 10:58] VITALS: BP 96/54
[2020-05-20] MEDS ORDERED: VANCOMYCIN LEVEL IV ONE (16:30)
[2020-05-20] MEDS: Potassium Cl inj 20 MEQ in dextrose 5%-water 990 ML IV SCH (16:42)
--- NOTE | 2020-05-20 17:05 | NUR ---
Received call from lab that patient's vanco trough was critical of 27.1. Notified pharmacist, Armani, who stated ok to continue infusing current dose hung and he will make changes for next dose.
--- NOTE | 2020-05-20 18:52 | NUR ---
Problems reprioritized. Patient report given, questions answered & plan of care reviewed with SHAKA White.
[2020-05-20 20:00] VITALS: BP 106/60
[2020-05-21] VITALS (15 sets, daily range): BP systolic 99–116; BP diastolic 54–77
[2020-05-21] MEDS: Potassium Cl inj 20 MEQ in dextrose 5%-water 990 ML IV SCH ×2 (02:15→21:18)
[2020-05-21] MEDS: vancomycin/NS 1 GM ADD-VANTAGE 250 ML X 1 DOSE IV SCH ×2 (05:07→17:58)
[2020-05-21 05:41] LABS: BASOPHILS % (AUTO) 0.3 % (0-1); EOSINOPHILS # (AUTO) 0.1 X10'3 (0-0.9); EOSINOPHILS % (AUTO) 0.6 % (0-6); LYMPHOCYTES # (AUTO) 1.2 X10'3 (1.1-4.8); MEAN CORPUSCULAR HGB CONC 34.3 g/dL (33.0-36.5); MEAN CORPUSCULAR VOLUME 105.1 FL (78-98); MONOCYTES # (AUTO) 1.5 X10'3 (0-0.9); MONOCYTES % (AUTO) 15.9 % (2-12); NEUTROPHILS # (AUTO) 6.9 X10'3 (1.8-7.7); NEUTROPHILS % (AUTO) 71.2 % (42-75); PLATELET COUNT 112 X10'3 (140-440); RED BLOOD COUNT 1.85 X10'6 (4.70-6.10); RED CELL DISTRIBUTION WIDTH 23.9 % (11.5-14.5); WHITE BLOOD COUNT 9.7 X10'3 (4.5-11.0)
[2020-05-21] MEDS: HYDROmorphone inj. 0.5 MG/0.5 ML DISP.SYRIN IV PRN ×3 (05:48→20:55)
[2020-05-21] MEDS: ondansetron/PF 4mg/2ml inj IV PRN ×3 (05:48→20:52)
[2020-05-21 05:54] LABS: ALANINE AMINOTRANSFERASE 10 U/L (12-78); ALBUMIN 1.2 G/DL (3.4-5.0); ALKALINE PHOSPHATASE 221 IU/L (46-116); ANION GAP 9 (8-16); BILIRUBIN,TOTAL 16.2 MG/DL (0.1-1.0); BLOOD UREA NITROGEN 5 MG/DL (7-18); BUN/CREATININE RATIO 4.2 (5.4-32.0); CALCIUM 7.3 MG/DL (8.5-10.1); CHLORIDE 105 MMOL/L (99-107); CREATININE 1.19 MG/DL (0.60-1.10); SODIUM 134 MMOL/L (135-145); eGFR 73 ML/MIN
[2020-05-21 05:55] LABS: HEMATOCRIT 19.4 % (42.0-52.0); HEMOGLOBIN 6.6 g/dl (14.0-17.9)
[2020-05-21 06:00] LABS: ALBUMIN/GLOBULIN RATIO 0.3 (1.1-1.5); ASPARTATE AMINO TRANSFERASE 81 U/L (10-37); GLUCOSE 113 MG/DL (70-104); POTASSIUM 3.2 MMOL/L (3.5-5.1)
--- NOTE | 2020-05-21 06:52 | NUR ---
Md notified of critical H/H. MD input orders. Morning MD to go over consent with patient.
[2020-05-21 06:59] LABS: ANISOCYTOSIS 3+; PLATELET ESTIMATE DECREASED; TOTAL CELLS COUNTED 100
[2020-05-21 07:00] LABS: ACANTHOCYTES FEW; POLYCHROMASIA 1+; ROULEAUX 1+; SCHISTOCYTES FEW; TARGET CELLS FEW
[2020-05-21] MEDS: lactulose 20gm/30ml cup PO SCH ×2 (08:00→20:00)
[2020-05-21] MEDS: K and/or MAG REPLACEMENT MC SCH ×2 (08:00→20:00)
[2020-05-21] MEDS: pantoprazole 40mg Tablet.DR PO SCH ×2 (08:05→20:42)
[2020-05-21] MEDS: lactobacillus rhamnosus 10,000 MMU CELLS/CAPSULE PO SCH ×2 (08:05→20:42)
[2020-05-21] MEDS: mag hydrox/Alum hydrox/simeth 30ml oral suspension PO SCH ×4 (08:05→20:43)
[2020-05-21] MEDS: potassium Cl 20 mEq SR tablet PO PRN (08:05)
[2020-05-21] MEDS: multivitamins, therapeutics tablet PO SCH (08:05)
[2020-05-21] MEDS: folic acid 1mg tablet PO SCH (08:05)
[2020-05-21] MEDS: NUT.TX.GLUC.INTOLER,LAC-FR,SOY (GLUCERNA) 237 ML PO SCH ×3 (08:06→18:04)
[2020-05-21] MEDS: thiamine 100mg tablet PO SCH (08:08)
[2020-05-21] MEDS: piperacillin/tazo 3.375gm/50ml 50 ML IV SCH ×2 (08:08→17:59)
--- NOTE | 2020-05-21 13:32 | NUR ---
Reassessment: Pt s/p abdominal ultrasound which showed ascites and fatty liver per MD notes. Bilirubin improving and hepatic encephalopathy secondary to chronic alcoholism has resolved per MD notes. Pt now documented as A/O x 3 and forgetful at times per physical assessment. Pt s/p f/u BSS 05/20 with [facility] diet advancement to regular d/t pt swallowing well with food and liquids. Diet has been advanced and pt now averaging 75-100% PO intake of meals with 100% PO intake of Glucerna meeting nutrient needs. LBM 05/20. Pt refusing routine Lactulose secondary to multiple bouts of diarrhea per MD notes. No new NH3 check since 05/13. Pt would benefit from NH3 recheck if to continue with routine Lactulose. Pt waiting placement for rehab per MD notes. Will continue to follow and monitor need for further nutrition intervention. Rec: 1. Continue regular diet 2. Glucerna TIDWM per MD 3. bowel care as needed; lactulose per MD for hyperammonemia 4. routine thiamine, folic, MVI for EtOH hx 5. scaled wts per rx Addendum: 05/21/20 at [address] Amended: Links added.
[2020-05-21 15:07] LABS: MEAN CORPUSCULAR HEMOGLOBIN 33.3 PG (27.0-31.0); MEAN CORPUSCULAR HGB CONC 33.4 g/dL (33.0-36.5); MEAN CORPUSCULAR VOLUME 99.8 FL (78-98); MEAN PLATELET VOLUME 8.9 FL (7.4-10.4); PLATELET COUNT 138 X10'3 (140-440); RED CELL DISTRIBUTION WIDTH 26.1 % (11.5-14.5); WHITE BLOOD COUNT 12.7 X10'3 (4.5-11.0)
[2020-05-21] MEDS ORDERED: MIDAZolam 1mg/ml 10ml vial ONE (15:36)
[2020-05-21] MEDS ORDERED: fentaNYL/PF 50MCG/1 ML 2ML syringe ONE (15:36)
[2020-05-21] MEDS ORDERED: LIDOcaine Viscous 15ml cup ONE (15:37)
--- NOTE | 2020-05-21 19:03 | NUR ---
Problems reprioritized. Patient report given, questions answered & plan of care reviewed with Kely Edge RN.
--- NOTE | 2020-05-21 19:04 | NUR ---
Patient in room [facility]. I have received report from CHANTAL MATT and had the opportunity to ask questions and assume patient care.
[2020-05-22] VITALS: BP 113/63
[2020-05-22] MEDS: piperacillin/tazo 3.375gm/50ml 50 ML IV SCH ×2 (00:08→07:30)
[2020-05-22] MEDS: ondansetron/PF 4mg/2ml inj IV PRN ×2 (03:02→09:05)
[2020-05-22] MEDS: HYDROmorphone inj. 0.5 MG/0.5 ML DISP.SYRIN IV PRN ×2 (03:04→09:05)
[2020-05-22] MEDS: vancomycin/NS 1 GM ADD-VANTAGE 250 ML X 1 DOSE IV SCH (05:25)
[2020-05-22 05:35] LABS: EOSINOPHILS # (AUTO) 0.1 X10'3 (0-0.9); MONOCYTES # (AUTO) 1.3 X10'3 (0-0.9); RED BLOOD COUNT 2.27 X10'6 (4.70-6.10)
[2020-05-22 05:37] LABS: ALANINE AMINOTRANSFERASE 9 U/L (12-78); ALBUMIN 1.1 G/DL (3.4-5.0); ALKALINE PHOSPHATASE 217 IU/L (46-116); ANION GAP 8 (8-16); BASOPHILS % (AUTO) 0.4 % (0-1); BILIRUBIN,TOTAL 14.6 MG/DL (0.1-1.0); BLOOD UREA NITROGEN 7 MG/DL (7-18); BUN/CREATININE RATIO 6.9 (5.4-32.0); CALCIUM 7.1 MG/DL (8.5-10.1); CHLORIDE 107 MMOL/L (99-107); CREATININE 1.01 MG/DL (0.60-1.10); EOSINOPHILS % (AUTO) 0.7 % (0-6); HEMATOCRIT 22.4 % (42.0-52.0); HEMOGLOBIN 7.8 g/dl (14.0-17.9); LYMPHOCYTES % (AUTO) 9.6 % (21-51); MEAN CORPUSCULAR HEMOGLOBIN 34.2 PG (27.0-31.0); MEAN CORPUSCULAR HGB CONC 34.8 g/dL (33.0-36.5); MEAN CORPUSCULAR VOLUME 98.5 FL (78-98); MEAN PLATELET VOLUME 8.9 FL (7.4-10.4); MONOCYTES % (AUTO) 13.2 % (2-12); NEUTROPHILS # (AUTO) 7.6 X10'3 (1.8-7.7); NEUTROPHILS % (AUTO) 76.1 % (42-75); PLATELET COUNT 127 X10'3 (140-440); POTASSIUM 3.1 MMOL/L (3.5-5.1); RED CELL DISTRIBUTION WIDTH 26.2 % (11.5-14.5); SODIUM 135 MMOL/L (135-145); TOTAL CARBON DIOXIDE 19.9 MMOL/L (24-32); eGFR 88 ML/MIN
[2020-05-22 05:41] LABS: ASPARTATE AMINO TRANSFERASE 62 U/L (10-37)
[2020-05-22 05:56] LABS: ALBUMIN/GLOBULIN RATIO 0.3 (1.1-1.5); GLUCOSE 156 MG/DL (70-104); TOTAL PROTEIN 4.7 G/DL (6.4-8.2)
--- NOTE | 2020-05-22 06:25 | NUR ---
Problems reprioritized. Patient report given, questions answered & plan of care reviewed with EMMANUEL MATT.
--- NOTE | 2020-05-22 06:27 | NUR ---
Patient in room [facility]. I have received report from Robi MATT and had the opportunity to ask questions and assume patient care.
[2020-05-22 06:51] LABS: ANISOCYTOSIS 3+; PLATELET ESTIMATE DECREASED; POIKILOCYTOSIS FEW; POLYCHROMASIA 1+
[2020-05-22 07:00] VITALS: BP 112/63
[2020-05-22] MEDS: pantoprazole 40mg Tablet.DR PO SCH (07:29)
[2020-05-22] MEDS: thiamine 100mg tablet PO SCH (07:29)
[2020-05-22] MEDS: multivitamins, therapeutics tablet PO SCH (07:29)
[2020-05-22] MEDS: folic acid 1mg tablet PO SCH (07:29)
[2020-05-22] MEDS: lactobacillus rhamnosus 10,000 MMU CELLS/CAPSULE PO SCH (07:30)
[2020-05-22] MEDS: NUT.TX.GLUC.INTOLER,LAC-FR,SOY (GLUCERNA) 237 ML PO SCH (07:30)
[2020-05-22] MEDS: mag hydrox/Alum hydrox/simeth 30ml oral suspension PO SCH ×2 (07:30→11:41)
[2020-05-22] MEDS: lactulose 20gm/30ml cup PO SCH (08:00)
[2020-05-22] MEDS: K and/or MAG REPLACEMENT MC SCH (08:00)
[2020-05-22] MEDS ORDERED: potassium CL 10mEq/100ml bag 100 ML IV PRN (09:50)
[2020-05-22] MEDS ORDERED: potassium Cl 20 mEq SR tablet PO PRN ×2 (09:50)
[2020-05-22] MEDS ORDERED: acetaminophen 325mg tablet PO PRN (09:50)
[2020-05-22] MEDS ORDERED: potassium Cl 20 mEq SR tablet PO STA (10:14)
[2020-05-22] MEDS ORDERED: LACT10SO32 PO (10:22)
[2020-05-22 11:33] VITALS: BP 114/69
--- NOTE | 2020-05-22 12:41 | NUR ---
patient up and about. BMx3, refused lactulose. Appears stable. Seen by Dr mcneil, is for discharge. All instructions given to patient, tacho with regards to not drink at home. patient appears to be compliant. Stated that he will follow up with [place] [facility] and establishing PCP when discharged. . patient discharged home via private car with friend in stable condition.
[2020-05-22] MEDS ORDERED: VANCOMYCIN LEVEL IV ONE (16:30)
== END 2020-05-22 11:45 | disposition home or self-care (01) | DRG 720 ==
LOC: ER 15:59 → ED HOLD 20:05 → PCU 3S 21:39 → SUR 3N 05-18 15:34
PROVIDERS: ADMIT Internal Medicine; ATTEND Internal Medicine
PROC: 0DJ08ZZ Inspection of Upper Intestinal Tract, Via Natural or Artificial Opening Endoscopic (ICD-10-PCS; principal; 2020-05-21)
PROC: 30233N1 Transfusion of Nonautologous Red Blood Cells into Peripheral Vein, Percutaneous Approach (ICD-10-PCS; 2020-05-21)
DX: A41.9 Sepsis, unspecified organism (principal); E87.0 Hyperosmolality and hypernatremia; D68.9 Coagulation defect, unspecified; K76.6 Portal hypertension; K86.1 Other chronic pancreatitis; K70.40 Alcoholic hepatic failure without coma; K70.31 Alcoholic cirrhosis of liver with ascites; D64.9 Anemia, unspecified; E11.9 Type 2 diabetes mellitus without complications; E87.6 Hypokalemia; G89.29 Other chronic pain; K31.89 Other diseases of stomach and duodenum; K76.0 Fatty (change of) liver, not elsewhere classified; F12.90 Cannabis use, unspecified, uncomplicated; Z79.899 Other long term (current) drug therapy
CPT/HCPCS: 36415; 43235; 70450; 74176; 76700; 76937; 80048; 80053; 80061; 80202; 80305; 80320; 82140; 82948; 83605; 83690; 83735; 84132; 84145; 85025; 85027; 85610; 85651; 86140; 86885; 86900; 86901; 86920; 87040; 87081; 92508; 92616; 93005; 97116; 97161; 97530; 97535; 99152; 99285; A4620; G0378; J0780; J1170; J2250; J2405; J2543; J3010; J3370; J3411; J3480; J7030; J7040; J7050; J7070; P9016